=== PATIENT | female | born 1940 | race Caucasian/White ===

== ENCOUNTER → 2017-10-06 | Outpatient (CLI) | payer MEDICARE ==
[2017-10-06 08:55] LABS: ADD MAN DIFF? NO
[2017-10-06 09:02] LABS: BASO % 1 % (0-3); EOS % 5 % (0-3); HEMATOCRIT 40.8 % (36.0-47.0); HEMOGLOBIN 13.7 g/dL (12.0-15.5); LYMPH # 0.7 x10^3/uL (1.0-4.8); LYMPH % 17 % (24-48); MEAN CORPUSCULAR HEMOGLOBIN 30 pg (25-35); MEAN CORPUSCULAR HGB CONC 34 g/dL (31-37); MEAN CORPUSCULAR VOLUME 89 fL (79-100); MONO % 9 % (0-9); NEUT % 69 % (31-73); PLATELET COUNT 194 x10^3/uL (140-400); RED BLOOD COUNT 4.57 x10^6/uL (3.50-5.40); RED CELL DISTRIBUTION WIDTH 13.5 % (11.5-14.5); WHITE BLOOD COUNT 4.4 x10^3/uL (4.0-11.0)
[2017-10-06 09:15] LABS: ALBUMIN 4.1 g/dL (3.4-5.0); ALBUMIN/GLOBULIN RATIO 1.2 (1.0-1.7); ALK PHOS 65 U/L (46-116); ALT (SGPT) 19 U/L (14-59); ANION GAP 9 (6-14); AST (SGOT) 14 U/L (15-37); BLOOD UREA NITROGEN 19 mg/dL (7-20); BUN/CREATININE RATIO 24 (6-20); CALCIUM 8.6 mg/dL (8.5-10.1); CARBON DIOXIDE 30 mmol/L (21-32); CHLORIDE 104 mmol/L (98-107); CHOLESTEROL 168 mg/dL (0-200); CHOLESTEROL/HDL RATIO 2.4; CREATININE 0.8 mg/dL (0.6-1.0); GFR 69.7; GLUCOSE 114 mg/dL (70-99); HDLC 69 mg/dL (40-60); NON-HDL CHOLESTEROL 99 mg/dL (0-129); POTASSIUM 4.3 mmol/L (3.5-5.1); SODIUM 143 mmol/L (136-145); TOTAL BILIRUBIN 0.5 mg/dL (0.2-1.0); TOTAL PROTEIN 7.5 g/dL (6.4-8.2); TRIGLYCERIDES 88 mg/dL (0-150)
[2017-10-06 10:26] LABS: BILIRUBIN,URINE NEGATIVE (NEG); GLUCOSE,URINE NEGATIVE (NEG); NITRITE,URINE NEGATIVE (NEG); PROTEIN,URINE NEGATIVE (NEG-TRACE); UROBILINOGEN,URINE 0.2 mg/dL (0.2 mg/dL)
[2017-10-06 10:50] LABS: BACTERIA,URINE 0 /HPF (0-FEW); SQUAMOUS EPITHELIAL CELL,UR MOD /LPF
== END | disposition home or self-care (01) ==
LOC: LAB 08:18
DX: I10 Essential (primary) hypertension (principal); E78.5 Hyperlipidemia, unspecified; D64.9 Anemia, unspecified; R30.0 Dysuria
CPT/HCPCS: 36415; 80053; 80061; 81001; 84443; 85025; 87086

== ENCOUNTER 2017-12-28 17:29 | Emergency (ER) | payer MEDICARE ==
[2017-12-28] MEDS: HYDROcodone/APAP 7.5/325MG 1 TAB TABLET PO (18:42)
== END 2017-12-28 19:10 | disposition home or self-care (01) ==
LOC: ER 17:29
DX: S42.212A Unspecified displaced fracture of surgical neck of left humerus, initial encounter for closed fracture (principal); I10 Essential (primary) hypertension; E78.00 Pure hypercholesterolemia, unspecified; Z90.49 Acquired absence of other specified parts of digestive tract; Z90.710 Acquired absence of both cervix and uterus; Z93.3 Colostomy status; W01.0XXA Fall on same level from slipping, tripping and stumbling without subsequent striking against object, initial encounter; Y93.89 Activity, other specified; Y92.89 Other specified places as the place of occurrence of the external cause; Y99.8 Other external cause status
CPT/HCPCS: 73030; 99284

== ENCOUNTER → 2018-01-11 | Outpatient (CLI) | payer MEDICARE ==
[2018-01-11 08:38] LABS: ADD MAN DIFF? NO
[2018-01-11 08:53] LABS: BASO % 1 % (0-3); EOS # 0.1 x10^3/uL (0.0-0.7); EOS % 1 % (0-3); HEMATOCRIT 39.2 % (36.0-47.0); LYMPH # 1.1 x10^3/uL (1.0-4.8); LYMPH % 14 % (24-48); MEAN CORPUSCULAR HEMOGLOBIN 30 pg (25-35); MEAN CORPUSCULAR HGB CONC 33 g/dL (31-37); MEAN CORPUSCULAR VOLUME 91 fL (79-100); MONO # 0.4 x10^3/uL (0.0-1.1); MONO % 6 % (0-9); NEUT # 6.2 x10^3uL (1.8-7.7); NEUT % 79 % (31-73); PLATELET COUNT 365 x10^3/uL (140-400); RED BLOOD COUNT 4.32 x10^6/uL (3.50-5.40); RED CELL DISTRIBUTION WIDTH 14.4 % (11.5-14.5); WHITE BLOOD COUNT 7.9 x10^3/uL (4.0-11.0)
[2018-01-11 09:27] LABS: ALK PHOS 85 U/L (46-116); ALT (SGPT) 17 U/L (14-59); ANION GAP 9 (6-14); AST (SGOT) 11 U/L (15-37); BLOOD UREA NITROGEN 25 mg/dL (7-20); BUN/CREATININE RATIO 18 (6-20); CALCIUM 9.6 mg/dL (8.5-10.1); CARBON DIOXIDE 30 mmol/L (21-32); CHLORIDE 102 mmol/L (98-107); CHOLESTEROL 146 mg/dL (0-200); CREATININE 1.4 mg/dL (0.6-1.0); GFR 36.6; GLUCOSE 150 mg/dL (70-99); HDLC 60 mg/dL (40-60); LDLC 65 mg/dL (0-100); NON-HDL CHOLESTEROL 86 mg/dL (0-129); POTASSIUM 4.4 mmol/L (3.5-5.1); SODIUM 141 mmol/L (136-145); TOTAL BILIRUBIN 0.6 mg/dL (0.2-1.0); TOTAL PROTEIN 7.9 g/dL (6.4-8.2); TRIGLYCERIDES 103 mg/dL (0-150); VLDLC 21 mg/dL (0-40)
[2018-01-11 09:28] LABS: CHOLESTEROL/HDL RATIO 2.4
[2018-01-11 09:37] LABS: THYROID STIM HORMONE (TSH) 1.631 uIU/mL (0.358-3.74)
[2018-01-12 04:17] LABS: HEMOGLOBIN A1C 5.5 % (4.8-5.6)
== END | disposition home or self-care (01) ==
LOC: LAB 08:18
DX: I10 Essential (primary) hypertension (principal); E78.5 Hyperlipidemia, unspecified; M19.90 Unspecified osteoarthritis, unspecified site; D64.9 Anemia, unspecified; R73.09 Other abnormal glucose
CPT/HCPCS: 36415; 80053; 80061; 83036; 84443; 85025

== ENCOUNTER → 2018-08-06 | Outpatient (CLI) | payer MEDICARE ==
[2017-12-28 18:57] VITALS: BP 203/86
[~2018-08-06] MED LIST: HYDR-2869 PO; HYDR-971 PO; LISI-334 PO; LOVA20TA2 PO
[2018-08-06 08:42] LABS: BILIRUBIN,URINE SMALL (NEG); CLARITY,URINE CLEAR; COLOR,URINE YELLOW; NITRITE,URINE NEGATIVE (NEG); PROTEIN,URINE NEGATIVE (NEG-TRACE)
[2018-08-06 08:49] LABS: ALBUMIN 3.7 g/dL (3.4-5.0); ALBUMIN/GLOBULIN RATIO 1.1 (1.0-1.7); GFR 53.8; POTASSIUM 3.8 mmol/L (3.5-5.1); TOTAL BILIRUBIN 0.5 mg/dL (0.2-1.0)
[2018-08-06 08:51] LABS: CHOLESTEROL/HDL RATIO 2.3
[2018-08-06 09:01] LABS: SQUAMOUS EPITHELIAL CELL,UR FEW /LPF
[2018-08-06 09:02] LABS: BACTERIA,URINE 0 /HPF (0-FEW); HYALINE CASTS, URINE OCCASIONAL /HPF; RBC,URINE 0 /HPF (0-2)
[2018-08-06 10:27] LABS: BASO % 1 % (0-3); EOS # 0.2 x10^3/uL (0.0-0.7); EOS % 5 % (0-3); HEMATOCRIT 35.8 % (36.0-47.0); HEMOGLOBIN 12.4 g/dL (12.0-15.5); LYMPH # 0.9 x10^3/uL (1.0-4.8); LYMPH % 19 % (24-48); MEAN CORPUSCULAR HEMOGLOBIN 31 pg (25-35); MEAN CORPUSCULAR HGB CONC 35 g/dL (31-37); MEAN CORPUSCULAR VOLUME 89 fL (79-100); MONO # 0.4 x10^3/uL (0.0-1.1); MONO % 9 % (0-9); NEUT # 3.1 x10^3uL (1.8-7.7); NEUT % 67 % (31-73); PLATELET COUNT 223 x10^3/uL (140-400); RED BLOOD COUNT 4.02 x10^6/uL (3.50-5.40); RED CELL DISTRIBUTION WIDTH 13.4 % (11.5-14.5); WHITE BLOOD COUNT 4.7 x10^3/uL (4.0-11.0)
== END | disposition home or self-care (01) ==
LOC: LAB 07:45
PROVIDERS: ATTEND Family Medicine
DX: I10 Essential (primary) hypertension (principal); E78.5 Hyperlipidemia, unspecified; M19.90 Unspecified osteoarthritis, unspecified site; R30.0 Dysuria
CPT/HCPCS: 36415; 80053; 80061; 81001; 84443; 85025; 87086

== ENCOUNTER 2018-08-25 14:21 | Emergency (ER) | payer MEDICARE ==
[~2018-08-25] VITALS: Ht 162.6 cm; Wt 52.6 kg
[~2018-08-25 14:21] MED LIST changes: +HYDR-3164 PO; -HYDR-971 PO
[2018-08-25 14:41] LABS: BASO % 1 % (0-3); EOS % 1 % (0-3); HEMATOCRIT 36.7 % (36.0-47.0); HEMOGLOBIN 12.6 g/dL (12.0-15.5); LYMPH # 0.6 x10^3/uL (1.0-4.8); LYMPH % 12 % (24-48); MEAN CORPUSCULAR HEMOGLOBIN 31 pg (25-35); MEAN CORPUSCULAR HGB CONC 34 g/dL (31-37); MEAN CORPUSCULAR VOLUME 89 fL (79-100); MONO # 0.2 x10^3/uL (0.0-1.1); MONO % 4 % (0-9); NEUT % 83 % (31-73); PLATELET COUNT 169 x10^3/uL (140-400); RED BLOOD COUNT 4.13 x10^6/uL (3.50-5.40); WHITE BLOOD COUNT 4.9 x10^3/uL (4.0-11.0)
[2018-08-25] MEDS ORDERED: ONDANSETRON ODT 4 MG TAB.RAPDIS. PO ONE (14:45)
[2018-08-25 14:52] VITALS: BP 175/72
[2018-08-25 14:55] LABS: CALCIUM 9.3 mg/dL (8.5-10.1); CREATININE 0.9 mg/dL (0.6-1.0); GFR 60.7
--- NOTE | 2018-08-25 15:00 | RAD ---
Single view chest dated 08/25/2018. No comparison available. CLINICAL INDICATION: Cough nausea vomiting since this morning. FINDINGS: Single upright portable exam performed. Heart and mediastinal contours are within normal limits. There is mild tortuosity of the thoracic aorta. Lungs are clear without focal consolidation. Vascular interstitium within normal limits. No pleural effusion or pneumothorax. IMPRESSION: No acute radiographic abnormality. Electronically signed by: Darwin Rios MD (08/25/2018 2:57 PM) [facility] [place]
[2018-08-25 15:01] LABS: ALBUMIN 3.5 g/dL (3.4-5.0); ALBUMIN/GLOBULIN RATIO 1.1 (1.0-1.7); TOTAL BILIRUBIN 0.5 mg/dL (0.2-1.0); TOTAL PROTEIN 6.6 g/dL (6.4-8.2)
--- NOTE | 2018-08-25 15:13 | PHYS DOC ---
Past Medical History Past Medical History: Cancer, High Cholesterol, Hypertension, Other Additional Past Medical Histor: COLON CA Past Surgical History: Appendectomy, Colectomy, Hysterectomy, Other Additional Past Surgical Histo: COLOSTOMY AND TAKEDOWN Alcohol Use: None Drug Use: None Adult General Chief Complaint Chief Complaint: NAUSEA/VOMITING/DIARRHA HPI HPI Patient is a 78 year old female with history of hypertension, dyslipidemia and vertigo who presents with intermittent dizziness since waking this morning. Patient reports feeling dizzy and lightheaded. She also reports feeling nauseated with white phlegm production. Symptoms are worse with walking and standing and are relieved with rest. Patient denies headache, tinnitus, hearing loss, neck pain. No chest pain palpitations, shortness of breath, or focal extremity weakness or loss of sensation. No other acute symptoms or complaints. Reports intermittent sharp left-sided abdominal pain 2 months. No bloody stools dark tarry stools. No other acute symptoms or complaints [] Review of Systems Review of Systems Review symptoms as per history of present illness. All other review symptoms are negative. All other systems were reviewed and found to be within normal limits, except as documented in this note. Current Medications Current Medications Current Medications Medications (Trade) Dose Ordered Sig/Ajvi Start Time Stop Time Status Last Admin Dose Admin Meclizine HCl (Antivert) 25 mg 1X ONCE 08/25/18 15:15 08/25/18 15:16 DC 08/25/18 15:21 25 MG Ondansetron HCl (Zofran Odt) 4 mg 1X ONCE 08/25/18 14:45 08/25/18 14:46 DC 08/25/18 15:09 4 MG Allergies Allergies Allergies Coded Allergies Type Severity Reaction Last Updated Verified No Known Drug Allergies 09/11/13 No Physical Exam Physical Exam Constitutional: Well developed, well nourished, no acute distress, non-toxic appearance. [] HENT: Normocephalic, atraumatic, bilateral external ears normal, oropharynx moist, nose normal. [] Eyes: PERRLA, EOMI, conjunctiva normal, horizontal nystagmus on exam. [] Neck: Normal range of motion, no tenderness. [] Cardiovascular:Heart rate regular rhythm, no murmur [] Lungs & Thorax: Bilateral breath sounds clear to auscultation. [] Abdomen: Bowel sounds normal, soft, no tenderness. [] Skin: Warm, dry, no erythema. [] Back: No tenderness. [] Extremities: No tenderness, no edema. [] Neurologic: Alert and oriented X 3, cranial nerves II through XII, normal motor function, normal sensory function, no focal deficits noted. [] Psychologic: Affect normal, judgement normal, mood normal. [] Current Patient Data Vital Signs Vital Signs Date Time Temp Pulse Resp B/P (MAP) Pulse Ox O2 Delivery O2 Flow Rate FiO2 08/25/18 14:52 74 20 175/72 (106) 99 Room Air 08/25/18 14:21 97.7 97.7 Lab Values Laboratory Tests Test 08/25/18 14:34 White Blood Count 4.9 x10^3/uL (4.0-11.0) Red Blood Count 4.13 x10^6/uL (3.50-5.40) Hemoglobin 12.6 g/dL (12.0-15.5) Hematocrit 36.7 % (36.0-47.0) Mean Corpuscular Volume 89 fL (79-100) Mean Corpuscular Hemoglobin 31 pg (25-35) Mean Corpuscular Hemoglobin Concent 34 g/dL (31-37) Red Cell Distribution Width 13.0 % (11.5-14.5) Platelet Count 169 x10^3/uL (140-400) Neutrophils (%) (Auto) 83 % (31-73) H Lymphocytes (%) (Auto) 12 % (24-48) L Monocytes (%) (Auto) 4 % (0-9) Eosinophils (%) (Auto) 1 % (0-3) Basophils (%) (Auto) 1 % (0-3) Neutrophils # (Auto) 4.0 x10^3uL (1.8-7.7) Lymphocytes # (Auto) 0.6 x10^3/uL (1.0-4.8) L Monocytes # (Auto) 0.2 x10^3/uL (0.0-1.1) Eosinophils # (Auto) 0.0 x10^3/uL (0.0-0.7) Basophils # (Auto) 0.0 x10^3/uL (0.0-0.2) Sodium Level 143 mmol/L (136-145) Potassium Level 4.0 mmol/L (3.5-5.1) Chloride Level 106 mmol/L (98-107) Carbon Dioxide Level 29 mmol/L (21-32) Anion Gap 8 (6-14) Blood Urea Nitrogen 16 mg/dL (7-20) Creatinine 0.9 mg/dL (0.6-1.0) Estimated GFR (Cockcroft-Gault) 60.7 BUN/Creatinine Ratio 18 (6-20) Glucose Level 163 mg/dL (70-99) H Calcium Level 9.3 mg/dL (8.5-10.1) Total Bilirubin 0.5 mg/dL (0.2-1.0) Aspartate Amino Transferase (AST) 11 U/L (15-37) L Alanine Aminotransferase (ALT) 13 U/L (14-59) L Alkaline Phosphatase 60 U/L (46-116) Troponin I Quantitative < 0.017 ng/mL (0.000-0.055) Total Protein 6.6 g/dL (6.4-8.2) Albumin 3.5 g/dL (3.4-5.0) Albumin/Globulin Ratio 1.1 (1.0-1.7) Laboratory Tests 08/25/18 14:34 Laboratory Tests 08/25/18 14:34 EKG EKG [EKG: Sinus arrhythmia, rate 79, no acute ST-T wave changes, QTC 425.] Radiology/Procedures Radiology/Procedures Chest x-ray: No acute cardiopulmonary disease per radiology report.[] Course & Med Decision Making Course & Med Decision Making Pertinent Labs and Imaging studies reviewed. (See chart for details) [Intermittent positional dizziness with nausea with history of vertigo. No focal deficits on exam. CT head is nonacute.. Meclizine and Zofran given. Symptoms improved and patient walks with steady gait.. Patient requests discharged home. PCP follow-up recommended. Return precautions reviewed.] Dragon Disclaimer Dragon Disclaimer This electronic medical record was generated, in whole or in part, using a voice recognition dictation system. Departure Departure Impression: Primary Impression: Dizziness Additional Impression: Nausea Disposition: 01 HOME, SELF-CARE Condition: GOOD Referrals: LUI CERON (PCP) Patient Instructions: Dizziness, Mrxi-dq-Sogu, Nausea, Adult, Czhe-bt-[id number] Additional Instructions: You were evaluated in the emergency department for dizziness and nausea. CT lab and EKG were performed. The exact cause of your symptoms has not been determined. Please continue meclizine at home and take nausea medication as directed. Follow-up with your PCP in 1-2 days for reevaluation. If you develop new or worsening symptoms, please return to the ED for further evaluation Scripts Ondansetron Hcl (ZOFRAN) 4 Mg Tablet 1 TAB PO Q6HRS, #10 TAB 0 Refills Prov: CHARO EDWARDS DO 08/25/18 Problem Qualifiers CHARO EDWARDS DO Aug 25, 2018 15:13
[2018-08-25] MEDS ORDERED: MECLIZINE HCL 12.5 MG TABLET. PO ONE (15:15)
--- NOTE | 2018-08-25 15:50 | RAD ---
CT HEAD WO CONTRAST dated 08/25/2018 3:27 PM Indication:. Dizzinessdizziness, vertigo, prior sent. Comparison: 06/04/2005 Technique: Contiguous axial imaging the head was performed from skull base to vertex. One or more of the following individualized dose reduction techniques were utilized for this examination: 1. Automated exposure control 2. Adjustment of the mA and/or kV according to patient size 3. Use of iterative reconstruction technique Findings: Ventricles and sulci are mildly prominent for age. No midline shift or mass effect. Brain parenchyma is of normal attenuation. No hemorrhage or extra axial collection. Posterior fossa and brainstem unremarkable. Visualized paranasal sinuses and mastoid air cells are clear. No apparent calvarial abnormality. IMPRESSION: 1. No evidence of acute intracranial hemorrhage or mass. 2. Mild atrophy for age. Electronically signed by: Darwin Rios MD (08/25/2018 3:46 PM) [facility] [place]
[2018-08-25] MEDS ORDERED: ONDA4TAB7 PO (16:56)
--- NOTE | 2018-08-26 07:36 | EKG ---
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
== END 2018-08-25 17:03 | disposition home or self-care (01) ==
LOC: ER 14:21
DX: R42 Dizziness and giddiness (principal); R11.2 Nausea with vomiting, unspecified; R10.9 Unspecified abdominal pain; I10 Essential (primary) hypertension; E78.00 Pure hypercholesterolemia, unspecified; Z90.89 Acquired absence of other organs; Z90.710 Acquired absence of both cervix and uterus; Z90.49 Acquired absence of other specified parts of digestive tract; Z93.3 Colostomy status; Z85.038 Personal history of other malignant neoplasm of large intestine
CPT/HCPCS: 36415; 70450; 71045; 80053; 84484; 85025; 93005; 99285; J8597; Q0162

== ENCOUNTER → 2019-01-08 | Outpatient (CLI) | payer MEDICARE ==
[~2019-01-08] MED LIST changes: +ONDA4TAB7 PO
[2019-01-08 09:03] LABS: ALBUMIN 3.8 g/dL (3.4-5.0); ALBUMIN/GLOBULIN RATIO 1.4 (1.0-1.7); CHOLESTEROL/HDL RATIO 2.3; GFR 53.8; POTASSIUM 5.1 mmol/L (3.5-5.1); TOTAL BILIRUBIN 0.5 mg/dL (0.2-1.0); TOTAL PROTEIN 6.6 g/dL (6.4-8.2)
[2019-01-08 09:06] LABS: BASO % 1 % (0-3); EOS # 0.3 x10^3/uL (0.0-0.7); EOS % 7 % (0-3); HEMATOCRIT 36.6 % (36.0-47.0); HEMOGLOBIN 12.3 g/dL (12.0-15.5); LYMPH # 0.9 x10^3/uL (1.0-4.8); LYMPH % 23 % (24-48); MEAN CORPUSCULAR HEMOGLOBIN 30 pg (25-35); MEAN CORPUSCULAR HGB CONC 34 g/dL (31-37); MEAN CORPUSCULAR VOLUME 90 fL (79-100); MONO # 0.3 x10^3/uL (0.0-1.1); MONO % 8 % (0-9); NEUT # 2.4 x10^3uL (1.8-7.7); NEUT % 62 % (31-73); PLATELET COUNT 188 x10^3/uL (140-400); RED BLOOD COUNT 4.05 x10^6/uL (3.50-5.40); WHITE BLOOD COUNT 3.9 x10^3/uL (4.0-11.0)
== END | disposition home or self-care (01) ==
LOC: LAB 08:21
PROVIDERS: ATTEND Family Medicine
DX: I10 Essential (primary) hypertension (principal); E53.8 Deficiency of other specified B group vitamins; E78.5 Hyperlipidemia, unspecified; E66.9 Obesity, unspecified; L40.9 Psoriasis, unspecified
CPT/HCPCS: 36415; 80053; 80061; 82607; 84443; 85025

== ENCOUNTER → 2019-01-10 | Day surgery (SDC) | payer MEDICARE ==
[~2019-01-10] MED LIST changes: +HYDROmorphone 2 MG/ML VIAL IV PRN; +IV RINGERS,LACTATED 1000ML 1,000 ML IV SCH; +LIDOCAINE 1% PF 2 ML VIAL. ONE; +MORPHINE SULFATE 2 MG/ML VIAL. IV PRN; +ONDANSETRON PF 4 MG/2 ML VIAL. IV PRN; +PROCHLORPERAZINE 10 MG/2 ML VIAL. IV PRN; +PROPOFOL 40 ML IV ONE; +fentaNYL PF VIAL 100 MCG/2 ML VIAL IV PRN
[2019-01-10 13:31] VITALS: BP 188/78
--- NOTE | 2019-01-14 13:30 | PATHOLOGY ---
[facility] Accession Number: [id number] . 01 Material submitted: . SIGMOID POLYP . 01 Clinical history: . History duodenal polyp, abdominal pain, CRCS . 02 Diagnosis: Colon biopsy, sigmoid polyp: - Tubular adenoma. LBQ/01/11/2019 . 02 Comment: There is no high grade dysplasia or evidence of malignancy. (JPM/db; 01/11/2019) . 02 Electronically signed: . Bryant Monterroso MD, Pathologist NPI- [id number] . 01 Gross description: . The specimen is received in formalin, labeled "Bresette, Anushka, sigmoid polyp", is a crenshaw rubbery, sessile polyp measuring 0.4 x 0.2 cm, inked black, bisected and entirely submitted in A1. ([facility]; 01/10/2019) SHS/SHS . 02 Pathologist provided ICD-10: D12.5 . 02 CPT . 497578 Specimen Comment: A courtesy copy of this report has been sent to Specimen Comment: [phone]. Specimen Comment: Report sent to DR CERON Specimen Comment: A duplicate report has been generated due to demographic updates. Performed at: 01 [facility] [address], [place] [id number] MD Isidro Flores MD Phone: [phone] Performed at: 02 [facility] [place] [address] [place], [place] [id number] MD Bryant Monterroso MD Phone: [phone]
== END | disposition home or self-care (01) ==
LOC: SURG 10:34
PROVIDERS: ATTEND Internal Medicine Gastroenterology
DX: D12.5 Benign neoplasm of sigmoid colon (principal); K64.0 First degree hemorrhoids; K29.50 Unspecified chronic gastritis without bleeding; Z86.010 Personal history of colon polyps; Z85.038 Personal history of other malignant neoplasm of large intestine; Z82.49 Family history of ischemic heart disease and other diseases of the circulatory system; Z79.899 Other long term (current) drug therapy; Z90.49 Acquired absence of other specified parts of digestive tract; Z90.710 Acquired absence of both cervix and uterus; Z98.890 Other specified postprocedural states
CPT/HCPCS: 43235; 45385; 88305; J2704; 45380

== ENCOUNTER → 2019-04-17 | Outpatient (CLI) | payer MEDICARE ==
[2019-01-10 13:31] VITALS: BP 188/78
[~2019-04-17] MED LIST changes: +CONTRAST GIVEN. MC PRN; -HYDROmorphone 2 MG/ML VIAL IV PRN; +IOHEXOL 350 MG/ML 100 ML VIAL. IV ONE; -IV RINGERS,LACTATED 1000ML 1,000 ML IV SCH; -LIDOCAINE 1% PF 2 ML VIAL. ONE; -MORPHINE SULFATE 2 MG/ML VIAL. IV PRN; -ONDANSETRON PF 4 MG/2 ML VIAL. IV PRN; -PROCHLORPERAZINE 10 MG/2 ML VIAL. IV PRN; -PROPOFOL 40 ML IV ONE; -fentaNYL PF VIAL 100 MCG/2 ML VIAL IV PRN
[2019-04-17 09:17] LABS: CREATININE 0.9 mg/dL (0.6-1.0); GFR 60.7
--- NOTE | 2019-04-17 12:47 | RAD ---
Examination: CT ANGIOGRAPHY ABDOMEN History: Abdominal pain with eating Comparison/Correlation: 03/20/2016 CT abdomen and pelvis with contrast Findings: Axial images of the abdomen were obtained following IV contrast according to arteriography protocol. Sagittal and coronal reformatted images were provided. MIP images provided. 3-D volume rendered images provided. Visualized lung bases are clear. Spleen is unremarkable. Cholelithiasis is present. No findings of biliary dilatation or cholecystitis. Spleen, pancreas, and adrenal glands are normal. Kidneys are unremarkable. Scattered calcific involvement of the abdominal aorta is noted. Minimal calcific involvement of the origin of the celiac artery noted. Calcific involvement about the origin of the superior mesenteric artery is notable. No significant stenosis. The inferior mesenteric artery is diminutive but does not appear to have a significant stenosis at the origin and it opacifies well with contrast. No abdominal aortic aneurysm. Main renal arteries are patent with no significant stenosis. There are no enlarged abdominal lymph nodes. Moderate quantity of stool in colon noted. Facet joint degenerative changes of the low lumbar spine are present. Multilevel significant disc space narrowing of the lumbar spine noted. Impression: No significant stenosis of the celiac, superior mesenteric, or inferior mesenteric arteries. No findings to suggest bowel ischemia. Cholelithiasis. Electronically signed by: Swapnil Sanderson MD (04/17/2019 12:44 PM) [facility]
== END | disposition home or self-care (01) ==
LOC: CT 08:39
PROVIDERS: ATTEND Internal Medicine Gastroenterology
DX: K80.20 Calculus of gallbladder without cholecystitis without obstruction (principal); M48.061 Spinal stenosis, lumbar region without neurogenic claudication; M47.816 Spondylosis without myelopathy or radiculopathy, lumbar region; R59.0 Localized enlarged lymph nodes; I10 Essential (primary) hypertension; Z90.49 Acquired absence of other specified parts of digestive tract
CPT/HCPCS: 36415; 74175; 82565; 84520; Q9967

== ENCOUNTER → 2019-05-08 | Outpatient (CLI) | payer MEDICARE ==
[2019-01-10 13:31] VITALS: BP 188/78
[~2019-05-08] MED LIST changes: -CONTRAST GIVEN. MC PRN; -IOHEXOL 350 MG/ML 100 ML VIAL. IV ONE; +MECL25TA3 PO
[2019-05-08 16:29] LABS: BASO % 1 % (0-3); EOS # 0.2 x10^3/uL (0.0-0.7); EOS % 4 % (0-3); HEMATOCRIT 35.6 % (36.0-47.0); LYMPH # 1.1 x10^3/uL (1.0-4.8); LYMPH % 26 % (24-48); MEAN CORPUSCULAR HEMOGLOBIN 30 pg (25-35); MEAN CORPUSCULAR HGB CONC 34 g/dL (31-37); MEAN CORPUSCULAR VOLUME 89 fL (79-100); MONO # 0.4 x10^3/uL (0.0-1.1); MONO % 8 % (0-9); NEUT # 2.8 x10^3/uL (1.8-7.7); NEUT % 62 % (31-73); PLATELET COUNT 198 x10^3/uL (140-400); RED CELL DISTRIBUTION WIDTH 13.7 % (11.5-14.5); WHITE BLOOD COUNT 4.4 x10^3/uL (4.0-11.0)
[2019-05-08 16:52] LABS: CALCIUM 9.3 mg/dL (8.5-10.1); CREATININE 0.9 mg/dL (0.6-1.0); GFR 60.7; POTASSIUM 3.9 mmol/L (3.5-5.1); TOTAL BILIRUBIN 0.3 mg/dL (0.2-1.0)
== END | disposition home or self-care (01) ==
LOC: SURGPAT 12:11
PROVIDERS: ATTEND Neurological Surgery
DX: Z01.818 Encounter for other preprocedural examination (principal); K80.20 Calculus of gallbladder without cholecystitis without obstruction
CPT/HCPCS: 36415; 80048; 82040; 82247; 85025

== ENCOUNTER → 2019-05-15 | Day surgery (SDC) | payer MEDICARE ==
[~2019-05-15] VITALS: Ht 165.1 cm; Wt 74.0 kg
[~2019-05-15] MED LIST changes: +BUPIVACAINE-EPI 0.25%-1:200000 MPF 30 ML VIAL. ONE; +DEXAMETHASONE SOD PHOS 4 MG/ML VIAL ONE; +GLUCAGON,HUMAN RECOMBINANT 1 MG/ML VIAL. ONE; +GLYCOPYRROLATE 1 MG/5 ML VIAL. ONE; +HYDROcodone/APAP 5/325MG 1 TAB TABLET ONE; +HYDROcodone/APAP 5/325MG 1 TAB TABLET PO ONE; +HYDROmorphone 2 MG/ML VIAL IV PRN; +IOHEXOL 300 MG/ML 50 ML VIAL. ONE; +IV RINGERS,LACTATED 1000ML 1,000 ML IV SCH; +LIDOCAINE 1% PF 2 ML VIAL. ID PRN; +LIDOCAINE 2% PF 5 ML VIAL. ONE; +MORPHINE SULFATE 2 MG/ML VIAL. IV PRN; +NEOSTIGMINE METHYLSULFATE 5 MG/5 ML SYRINGE. ONE; +ONDANSETRON PF 4 MG/2 ML VIAL. IV PRN; +ONDANSETRON PF 4 MG/2 ML VIAL. ONE; +PROCHLORPERAZINE 10 MG/2 ML VIAL. IV PRN; +PROCHLORPERAZINE 10 MG/2 ML VIAL. ONE; +PROPOFOL 20 ML IV ONE; +SURGICEL HEMOSTAT 4X8 EACH. ONE; +fentaNYL PF VIAL 100 MCG/2 ML VIAL IV PRN; +fentaNYL PF VIAL 100 MCG/2 ML VIAL ONE
--- NOTE | 2019-05-15 10:47 | RAD ---
EXAM: Intraoperative cholangiogram. HISTORY: Cholecystectomy. COMPARISON: None. FINDINGS: 3 fluoroscopic images were obtained during an intraoperative cholangiogram. The total fluoroscopy time is 0.15 minutes. The images demonstrate contrast opacification of the biliary tree and proximal duodenum. There is no convincing filling defect to suggest a retained stone. There is an incidental nasogastric tube within the proximal stomach. IMPRESSION: Intraoperative cholangiogram, without convincing evidence of a retained stone. Electronically signed by: Wen Salazar MD (05/15/2019 10:45 AM) [facility]
--- NOTE | 2019-05-15 11:10 | PDOC ---
BRIEF OPERATIVE NOTE Date: May 15, 2019 Pre-Op Diagnosis symptomatic cholelithiasis Post-Op Diagnosis same Procedure Performed l/s cholecystectomy with cholangiograms Surgeon Marek Supervisor Fitting Amy JACOBSONA Anesthesia Type: General Blood Loss 10cc IV Fluid 650cc Specimens Obtained GB Findings supple GB, normal grams Complications none Operative Note Wk # [id number] BHARTI PRATER MD May 15, 2019 11:10
[2019-05-15] MEDS: fentaNYL PF VIAL 100 MCG/2 ML VIAL IV PRN ×2 (11:28→12:35)
[2019-05-15 13:22] VITALS: BP 199/79
--- NOTE | 2019-05-15 15:29 | DISCH ---
DISCHARGE INSTRUCTIONS Condition on Discharge Condition on Discharge: Stable Activity After Discharge Activity Instructions for Disc: Activity as tolerated, Avoid exertion Exercise Instruction after Dis: Progress as tolerated Driving Instructions after Dis: Do not drive (3-4 days) Diet after Discharge Diet after Discharge: Regular Diet Texture: Regular Liquid Texture: Thin Liquid Swallowing Supervision: None needed Wound Incision Care Wound/Incision Care: Ice to area for comfort Other wound/incision instructi: february shower Monday Checks after Discharge Checks after discharge: Check blood press - daily Follow-Up Follow up with: Marek next week Treatment/Equipment after DC Adaptive Equipment Issued: None BHARTI PRATER MD May 15, 2019 15:29
--- NOTE | 2019-05-15 15:41 | OP ---
DATE OF SURGERY: 05/15/2019 PREOPERATIVE DIAGNOSIS: Symptomatic cholelithiasis. POSTOPERATIVE DIAGNOSIS: Symptomatic cholelithiasis. PROCEDURE: Laparoscopic cholecystectomy with cholangiogram. SURGEON: Bharti Prater MD SUMMER CAMP COUNSELOR: BRENDON Maddox ANESTHESIA: General endotracheal. ESTIMATED BLOOD LOSS: 10. INTRAVENOUS FLUIDS: 650. OPERATIVE FINDINGS: The liver was smooth and sharp. The gallbladder was supple. Cholangiograms were normal. Visual inspection of the remainder of the abdomen failed to reveal obvious abnormalities. OPERATIVE REPORT: The patient was brought to the operating suite, given a general endotracheal anesthetic, and the abdomen prepped and draped in usual sterile fashion. Marcaine 0.25% was infiltrated to the right of the umbilicus. Incision made and a 5-mm Visiport used to safely gain access into the abdominal cavity taking care to avoid injury to the abdominal contents. Pneumoperitoneum was established, camera inserted, and inspection carried out with results as noted above. With the table in reverse Trendelenburg rolled to the left, the epigastric and midclavicular ports were placed under direct vision. The lateral port location was used for an "alligator" grasper and the gallbladder was retracted superolaterally. Cystic duct and cystic artery identified. The duct was clipped on the gallbladder side. Cholangiograms were made. These were normal. In light of this, the catheter was removed. The cystic duct was clipped x 3 and divided taking care to avoid injury or compromise of the common duct. An anterior and posterior branch of the cystic artery was controlled with 3 clips. Gallbladder was freed from the bed with cautery dissection and placed in an EndoCatch bag. Good hemostasis was present in the fossa and no evidence of bile leak was seen. Table returned to level. Gallbladder delivered through the epigastric incision. Epigastric incision closed with interrupted 0 Vicryl suture. Intraabdominal pressure decreased to 6 cm of water. No bleeding from the epigastric closure or the midclavicular port site after its removal or from the lateral side of the alligator grasper. Abdomen decompressed. Cam removed. No bleeding seen. Skin incisions closed with subcuticular 4-0 Monocryl. Steri-Strips and sterile dressings applied. The patient was awakened from her anesthetic and taken to the recovery room in satisfactory condition. BHARTI PRATER MD DR: Joi JOB#: [id number] / [id number]
--- NOTE | 2019-05-16 18:06 | PATHOLOGY ---
[facility] Accession Number: [id number] . 01 Material submitted: . gallbladder - GALLBLADDER AND CONTENTS . 01 Clinical history: . Cholelithiasis . 02 Diagnosis: Gallbladder, cholecystectomy: - Cholelithiasis. - Cholesterolosis. - Chronic cholecystitis. LBQ/05/16/2019 . 02 Comment: There is no evidence of malignancy. (JPM/db; 05/16/2019) . 02 Electronically signed: . Bryant Monterroso MD, Pathologist NPI- [id number] . 01 Gross description: . The specimen is received in formalin, labeled "Bresette, Anushka, gallbladder and contents", is an intact gallbladder measuring 7.7 cm in length and 2.4 cm in maximum diameter with a wrinkled crenshaw-purple serosa. The cystic duct is dilated. The gallbladder lumen contains yellow-brown bile and four irregular black calculi measuring 1.2 x 1.0 x 0.7 cm in aggregate. The mucosa is crenshaw-brown with possible cholesterolosis. The wall is 0.1 cm in average thickness. Representatively submitted in A1. ([facility]; 05/15/2019) SHS/SHS . 02 Pathologist provided ICD-10: K80.10, K82.4 . 02 CPT . 267593 Specimen Comment: A courtesy copy of this report has been sent to Specimen Comment: [phone], . Specimen Comment: Report sent to / DR CERON Performed at: 01 [facility] [address], [place], [place] [id number] MD Isidro Flores MD Phone: [phone] Performed at: 02 [facility] [address] [place], [place] [id number] MD Bryant Monterroso MD Phone: [phone]
== END | disposition home or self-care (01) ==
LOC: SURG 07:27
PROVIDERS: ATTEND Surgery
DX: K80.10 Calculus of gallbladder with chronic cholecystitis without obstruction (principal); I10 Essential (primary) hypertension; E78.00 Pure hypercholesterolemia, unspecified; Z85.038 Personal history of other malignant neoplasm of large intestine; Z90.710 Acquired absence of both cervix and uterus; Z98.890 Other specified postprocedural states; Z79.899 Other long term (current) drug therapy; Z93.3 Colostomy status; Z82.49 Family history of ischemic heart disease and other diseases of the circulatory system
CPT/HCPCS: 47563; 74300; A7015; J0690; J0780; J1100; J2001; J2405; J2704; J2710; J3010; J3490; J7030; Q9967; 88304; J1610

== ENCOUNTER 2019-12-06 08:22 | Emergency (ER) | payer MEDICAID, MEDICARE ==
[~2019-12-06] VITALS: Ht 162.6 cm; Wt 72.2 kg
[~2019-12-06 08:22] MED LIST changes: -BUPIVACAINE-EPI 0.25%-1:200000 MPF 30 ML VIAL. ONE; -DEXAMETHASONE SOD PHOS 4 MG/ML VIAL ONE; -GLUCAGON,HUMAN RECOMBINANT 1 MG/ML VIAL. ONE; -GLYCOPYRROLATE 1 MG/5 ML VIAL. ONE; -HYDROcodone/APAP 5/325MG 1 TAB TABLET ONE; -HYDROcodone/APAP 5/325MG 1 TAB TABLET PO ONE; -HYDROmorphone 2 MG/ML VIAL IV PRN; -IOHEXOL 300 MG/ML 50 ML VIAL. ONE; -IV RINGERS,LACTATED 1000ML 1,000 ML IV SCH; -LIDOCAINE 1% PF 2 ML VIAL. ID PRN; -LIDOCAINE 2% PF 5 ML VIAL. ONE; +MECL-75 PO; -MECL25TA3 PO; -MORPHINE SULFATE 2 MG/ML VIAL. IV PRN; -NEOSTIGMINE METHYLSULFATE 5 MG/5 ML SYRINGE. ONE; -ONDANSETRON PF 4 MG/2 ML VIAL. IV PRN; -ONDANSETRON PF 4 MG/2 ML VIAL. ONE; -PROCHLORPERAZINE 10 MG/2 ML VIAL. IV PRN; -PROCHLORPERAZINE 10 MG/2 ML VIAL. ONE; -PROPOFOL 20 ML IV ONE; -SURGICEL HEMOSTAT 4X8 EACH. ONE; -fentaNYL PF VIAL 100 MCG/2 ML VIAL IV PRN; -fentaNYL PF VIAL 100 MCG/2 ML VIAL ONE
[2019-12-06 08:47] VITALS: BP 156/80
--- NOTE | 2019-12-06 09:03 | PHYS DOC ---
Past Medical History Past Medical History: Cancer, High Cholesterol, Hypertension, Other Additional Past Medical Histor: COLON CA Past Surgical History: Appendectomy, Colectomy, Hysterectomy, Other Additional Past Surgical Histo: COLOSTOMY AND TAKEDOWN Smoking Status: Never Smoker Alcohol Use: None Drug Use: None Adult General Chief Complaint Chief Complaint: LOWER BACK PAIN OR INJURY [facility] Patient is a 79 year old female who presents with complaint of right low back pain. Her pain has been constant for the past 3-4 weeks but occasionally flares up with movement. She states that occasionally she will have a sharp pain that shoots across her back. She denies known injury. Has been going to a chiropractor for a couple of weeks without relief. No medications taken prior to arrival. She denies hematuria or dysuria but states that she has had decreased urination over the past couple of weeks. No fever or chills reported. No diarrhea or constipation. Review of Systems Review of Systems All other ROS is negative unless otherwise stated in [facility] Allergies Allergies Allergies Coded Allergies Type Severity Reaction Last Updated Verified No Known Drug Allergies 05/08/19 No Physical Exam Physical Exam See above Constitutional: Well developed, well nourished, no acute distress, non-toxic appearance. [] HENT: Normocephalic, atraumatic, bilateral external ears normal, oropharynx moist, no oral exudates, nose normal. [] Eyes: PERRLA, EOMI, conjunctiva normal, no discharge. [] Neck: Normal range of motion, no tenderness, supple, no stridor. [] Cardiovascular:Heart rate regular rhythm, no murmur [] Lungs & Thorax: Bilateral breath sounds clear to auscultation [] Abdomen: Bowel sounds normal, soft, no tenderness, no masses, no pulsatile masses. [] Skin: Warm, dry, no erythema, no rash. [] Back: Tenderness to palpation of the right lumbar region. No CVA tenderness. Extremities: No tenderness, no cyanosis, no clubbing, ROM intact, no edema. [] Neurologic: Alert and oriented X 3, normal motor function, normal sensory function, no focal deficits noted. [] Psychologic: Affect normal, judgement normal, mood normal. [] Current Patient Data Vital Signs Vital Signs Date Time Temp Pulse Resp B/P (MAP) Pulse Ox O2 Delivery O2 Flow Rate FiO2 12/06/19 08:47 98.1 92 18 156/80 (105) 97 Room Air 98.1 Lab Values Laboratory Tests Test 12/06/19 08:42 Urine Collection Type Unknown Urine Color Yellow Urine Clarity Clear Urine pH 5.0 Urine Specific [place] 1.020 Urine Protein Negative mg/dL (NEG-TRACE) Urine Glucose (UA) Negative mg/dL (NEG) Urine Ketones (Stick) Negative mg/dL (NEG) Urine Blood Negative (NEG) Urine Nitrite Negative (NEG) Urine Bilirubin Negative (NEG) Urine Urobilinogen Dipstick 0.2 mg/dL (0.2 mg/dL) Urine Leukocyte Esterase Small (NEG) Urine RBC 0 /HPF (0-2) Urine WBC 1-4 /HPF (0-4) Urine Squamous Epithelial Cells Mod /LPF Urine Bacteria Few /HPF (0-FEW) Urine Hyaline Casts Many /HPF Urine Mucus Slight /LPF EKG EKG [] Radiology/Procedures Radiology/Procedures [] Course & Med Decision Making Course & Med Decision Making Pertinent Labs and Imaging studies reviewed. (See chart for details) 0903: Patient seen for right lumbar pain. Examination reveals tenderness to palpation. Differential diagnosis includes muscular skeletal injury, UTI, ureterolithiasis. 1017: Patient's urinalysis shows a very mild infection so we'll start her on Bactrim twice daily for 3 days. There is no evidence of ureterolithiasis. Patient will be given Flexeril at night for low back pain likely from a musculoskeletal nature and I will start her on an anti-inflammatory. She is to follow-up with her primary care physician next week. Patient is stable for discharge. Dragon Disclaimer Dragon Disclaimer This electronic medical record was generated, in whole or in part, using a voice recognition dictation system. Departure Departure Impression: Primary Impression: UTI (urinary tract infection) Additional Impression: Right lumbar pain Disposition: HOME, SELF-CARE Condition: STABLE Referrals: LUI CERON (PCP) Please follow up in 5-7 days Patient Instructions: Low Back Strain with Rehab-[facility] Scripts Diclofenac Sodium (DICLOFENAC SODIUM) 75 Mg Tablet. 1 TAB PO BID for 10 Days, #20 TAB 1 Refill Prov: SARAH KESSLER DO 12/06/19 Cyclobenzaprine Hcl (CYCLOBENZAPRINE HCL) 10 Mg Tablet 1 TAB PO HS for 10 Days, #10 TAB Prov: SARAH KESSLER DO 12/06/19 Sulfamethoxazole/Trimethoprim (BACTRIM DS TABLET) 1 Each Tablet 1 TAB PO BID for infection for 3 Days, #6 TAB Prov: SARAH KESSLER DO 12/06/19 Problem Qualifiers SARAH KESSLER DO Dec 06, 2019 09:03
[2019-12-06 09:12] LABS: BILIRUBIN,URINE NEGATIVE (NEG); CLARITY,URINE CLEAR; COLOR,URINE YELLOW; NITRITE,URINE NEGATIVE (NEG); PROTEIN,URINE NEGATIVE (NEG-TRACE); UROBILINOGEN,URINE 0.2 mg/dL (0.2 mg/dL)
[2019-12-06 09:31] LABS: BACTERIA,URINE FEW /HPF (0-FEW); RBC,URINE 0 /HPF (0-2); SQUAMOUS EPITHELIAL CELL,UR MOD /LPF
[2019-12-06 09:32] LABS: HYALINE CASTS, URINE MANY /HPF
[2019-12-06] MEDS ORDERED: CYCL10TA2 PO (10:21)
[2019-12-06] MEDS ORDERED: DICL75TA PO (10:21)
[2019-12-06] MEDS ORDERED: SULF1TAB24 PO (10:21)
== END 2019-12-06 10:40 | disposition home or self-care (01) ==
LOC: ER 08:22
DX: N39.0 Urinary tract infection, site not specified (principal); E78.00 Pure hypercholesterolemia, unspecified; I10 Essential (primary) hypertension; Z90.89 Acquired absence of other organs; Z90.710 Acquired absence of both cervix and uterus; Z90.49 Acquired absence of other specified parts of digestive tract; Z93.3 Colostomy status
CPT/HCPCS: 81001; 87086; 99284

== ENCOUNTER 2020-06-13 10:12 | Inpatient (IN) | payer MEDICAID, MEDICARE ==
[~2020-06-13] VITALS: Ht 165.1 cm; Wt 73.5 kg
[~2020-06-13 10:12] MED LIST changes: +CYCL10TA2 PO; +DICL75TA PO; +SULF1TAB24 PO
[2020-06-13] MEDS ORDERED: IV NORMAL SALINE 1000ML BAG 1,000 ML IV ONE (10:15)
[2020-06-13 10:51] LABS: BASO % 0 % (0-3); EOS % 0 % (0-3); HEMATOCRIT 41.8 % (36.0-47.0); HEMOGLOBIN 14.3 g/dL (12.0-15.5); LYMPH # 1.1 x10^3/uL (1.0-4.8); LYMPH % 13 % (24-48); MEAN CORPUSCULAR HEMOGLOBIN 31 pg (25-35); MEAN CORPUSCULAR HGB CONC 34 g/dL (31-37); MEAN CORPUSCULAR VOLUME 91 fL (79-100); MONO # 0.7 x10^3/uL (0.0-1.1); MONO % 8 % (0-9); NEUT # 6.6 x10^3/uL (1.8-7.7); NEUT % 78 % (31-73); PLATELET COUNT 242 x10^3/uL (140-400); RED BLOOD COUNT 4.61 x10^6/uL (3.50-5.40); WHITE BLOOD COUNT 8.4 x10^3/uL (4.0-11.0)
--- NOTE | 2020-06-13 10:55 | PHYS DOC ---
Past Medical History Past Medical History: Cancer, High Cholesterol, Hypertension, Other Additional Past Medical Histor: COLON CA,OSTEOARTHRITIS Past Surgical History: Appendectomy, Colectomy, Hysterectomy, Other Additional Past Surgical Histo: COLOSTOMY/[place] Smoking Status: Never Smoker Alcohol Use: None Drug Use: None General Adult EDM: Chief Complaint: ABDOMINAL PAIN HPI: HPI: Patient is a 80-year-old female presenting to the ED with abdominal pain that started 1 week ago. Patient has a prior history of colon cancer in 2001 and is status post resection and colostomy takedown. History of abdominal surgery and states that she has "adhesions and scar tissue" and has had this type of pain before. Patient's pain is located in the lower left quadrant and is worse when she consistently eats meals and is associated with nausea and vomiting. Pain is made better by not eating, using laxatives, and laying down. Patient is currently treated for hypertension. Patient denies chest pain, subjective fever, changes in bowel habits, any hematemesis, or hematochezia. She has had these kind of episodes at least 3 times in the past per records, it resolves with symptomatic treatment only. Denies known sick contacts. Review of Systems: Review of Systems: Constitutional: Denies fever or chills Eyes: Denies redness or eye pain HENT: Denies nasal congestion or sore throat Respiratory: Denies cough or shortness of breath Cardiovascular: Denies chest pain or palpitations GI: Endorses abdominal pain, nausea and vomiting : Denies dysuria or hematuria Musculoskeletal: Denies back pain or joint pain Integument: Denies rash or skin lesions Neurologic: Denies headache, focal weakness or sensory changes Complete systems were reviewed and found to be within normal limits, except as documented in this note. Current Medications: Current Medications Medications (Trade) Dose Ordered Sig/Javi Start Time Stop Time Status Last Admin Dose Admin Sodium Chloride 1,000 ml @ 1,000 mls/hr 1X ONCE 06/13/20 10:15 06/13/20 11:14 06/13/20 10:49 1,000 MLS/HR Allergies: Allergies: Allergies Coded Allergies Type Severity Reaction Last Updated Verified No Known Drug Allergies 05/08/19 No Physical Exam: PE: Constitutional: Well developed, well nourished, no acute distress, non-toxic appearance HENT: Normocephalic, atraumatic Eyes: PERRL, EOMI, conjunctiva normal, no discharge Neck: Normal range of motion, supple Lungs & Thorax: No respiratory distress, equal chest rise and fall Abdomen: Soft, LLQ tenderness with guarding Skin: Warm, dry, no erythema, no rash Back: No tenderness, no CVA tenderness Extremities: No tenderness, ROM intact, no edema Neurologic: Alert and oriented X 3, normal motor function, normal sensory function, no focal deficits noted Psychologic: Affect normal, judgment normal Current Patient Data: Vital Signs: Vital Signs Date Time Temp Pulse Resp B/P (MAP) Pulse Ox O2 Delivery O2 Flow Rate FiO2 06/13/20 10:18 99.0 95 20 176/83 (114) 95 Room Air 99.0 EKG: EK06/13/2020 at 1031 hours, heart rate 86 bpm, normal sinus rhythm, QRS 80 ms, QT/QTc 360/434 ms, possible atrial premature complexes Radiology/Procedures: Radiology/Procedures: PROCEDURE: CT ABDOMEN PELVIS WO CONTRAST PQRS Compliance Statement: One or more of the following individualized dose reduction techniques were utilized for this examination: 1. Automated exposure control 2. Adjustment of the mA and/or kV according to patient size 3. Use of iterative reconstruction technique CT abdomen/pelvis without contrast 06/13/2020 11:33 AM INDICATION: Left lower quadrant pain, nausea COMPARISON: CT angiography abdomen 04/17/2019 TECHNIQUE: Multiple axial CT images of the abdomen and pelvis were obtained without intravenous contrast. Coronal and sagittal reformats are provided. FINDINGS: Lung bases are clear. There is bibasilar subsegmental atelectasis. Heart size is within within normal limits. Calcified right hilar lymph nodes are present. Mitral prosthesis or dense calcifications noted. No pericardial effusion. Evaluation of solid abdominal viscera is limited by lack of intravenous contrast. Gallbladder surgically absent. Calcifications within the liver and spleen likely represent sequela prior granulomatous exposure. Abdominal aorta is normal in course and caliber with dense calcified atheromatous plaque. No pathologically enlarged lymph nodes are identified in abdomen and pelvis. Small fat-containing left inguinal hernia. No significant free intraperitoneal air. There may be trace pelvic free fluid. Kidneys are normal in appearance. No hydronephrosis or suspicious renal mass. There is mild inflammation involving the gastric antrum which could represent nonspecific gastritis. There is circumferential wall thickening with mural edema involving the sigmoid colon from the level of the left ventral abdominal hernia repair mesh distally towards the rectosigmoid junction. No definite bowel obstruction. Patchy sclerosis involving the iliac bones could reflect sequela of sacral insufficiency fractures. There is focal trabecular thickening along the left iliac bone with cortical thickening and central sclerosis. Findings are stable. IMPRESSION: 1. Findings most suggestive of colitis of infectious/inflammatory etiology involving entire sigmoid colon the level of the left ventral abdominal hernia mesh distally toward the rectosigmoid junction. No free intraperitoneal air or pericolonic abscess. 2. Focal wall thickening and adjacent inflammation involving the gastric antrum just above nonspecific gastritis. There is subtle inflammation within the mesenteric root and adjacent to the left adrenal gland. Adrenal glands are otherwise normal in appearance. 3. Appearance of the sacrum and left iliac bone appears stable dating back to 03/12/2016. Benign etiology. Electronically signed by: Beverly Koo MD (06/13/2020 12:01 PM) [facility] Course & Med Decision Making: Course & Med Decision Making Pertinent Labs and Imaging studies reviewed. (See chart for details) Patient is a 80-year-old female presenting to the ED with abdominal pain. Physical exam shows tenderness to palpation of the left lower quadrant. Per past chart review and patient interview, as these left lower quadrant abdominal pain episodes which resolved with symptomatic treatment only. Patient's abdominal pain is likely related to adhesions and scar tissue related to her abdominal surgeries. Laboratory hematology is unremarkable for any pertinent findings. Urine chemistry shows a lactate at 2.1, BUN of 27, and a creatinine of 1.3. Urinalysis is unremarkable. Abdominal CT shows findings suggestive of colitis in the sigmoid colon but no free intraperitoneal peritoneal air or pericolic abscesses. Due to patient's CT findings, age, inability to keep liquids down patient is being admitted for further evaluation and treatment. Empiric antibiotics initiated. Discussed with Dr. Sanchez (hospitalist) who is in agreement with admission. Discussed findings and plan with patient and family, who acknowledge understanding and agreement. Rolo Disclaimer: Rolo Disclaimer: This electronic medical record was generated, in whole or in part, using a voice recognition dictation system. Departure Departure Impression: Primary Impression: Acute colitis Additional Impressions: Dehydration Lactic acidosis Disposition: ADMITTED INPATIENT Admitting Physician: JESSIE Diggs) Condition: STABLE Referrals: LUI CERON (PCP) Justicifation of Admission Dx: Justifications for Admission: Justification of Admission Dx: Yes Comments: Acute colitis, lactic acidosis, dehydration DARIUS BERMEO DO Jun 13, 2020 10:55
[2020-06-13 10:57] LABS: BILIRUBIN,URINE MODERATE (NEG); CLARITY,URINE CLEAR; COLOR,URINE YELLOW; NITRITE,URINE NEGATIVE (NEG); PH,URINE 5.5 (<5.0-8.0); PROTEIN,URINE 30 mg/dL (NEG-TRACE); UROBILINOGEN,URINE 0.2 mg/dL (0.2 mg/dL)
[2020-06-13 11:01] LABS: PROTHROMBIN TIME PATIENT 13.8 SEC (11.7-14.0)
[2020-06-13 11:03] LABS: CALCIUM 8.9 mg/dL (8.5-10.1); CREATININE 1.3 mg/dL (0.6-1.0); GFR 39.5; POTASSIUM 3.6 mmol/L (3.5-5.1)
[2020-06-13 11:05] LABS: HYALINE CASTS, URINE MODERATE /HPF; SQUAMOUS EPITHELIAL CELL,UR MOD /LPF
[2020-06-13 11:06] LABS: BACTERIA,URINE FEW /HPF (0-FEW)
[2020-06-13 11:08] LABS: ALBUMIN 3.9 g/dL (3.4-5.0); ALBUMIN/GLOBULIN RATIO 1.1 (1.0-1.7); MAGNESIUM 2.3 mg/dL (1.8-2.4); TOTAL BILIRUBIN 0.7 mg/dL (0.2-1.0); TOTAL PROTEIN 7.3 g/dL (6.4-8.2)
[2020-06-13 11:29] LABS: CREATINE KINASE 64 U/L (26-192)
--- NOTE | 2020-06-13 12:03 | RAD ---
PQRS Compliance Statement: One or more of the following individualized dose reduction techniques were utilized for this examination: 1. Automated exposure control 2. Adjustment of the mA and/or kV according to patient size 3. Use of iterative reconstruction technique CT abdomen/pelvis without contrast 06/13/2020 11:33 AM INDICATION: Left lower quadrant pain, nausea COMPARISON: CT angiography abdomen 04/17/2019 TECHNIQUE: Multiple axial CT images of the abdomen and pelvis were obtained without intravenous contrast. Coronal and sagittal reformats are provided. FINDINGS: Lung bases are clear. There is bibasilar subsegmental atelectasis. Heart size is within within normal limits. Calcified right hilar lymph nodes are present. Mitral prosthesis or dense calcifications noted. No pericardial effusion. Evaluation of solid abdominal viscera is limited by lack of intravenous contrast. Gallbladder surgically absent. Calcifications within the liver and spleen likely represent sequela prior granulomatous exposure. Abdominal aorta is normal in course and caliber with dense calcified atheromatous plaque. No pathologically enlarged lymph nodes are identified in abdomen and pelvis. Small fat-containing left inguinal hernia. No significant free intraperitoneal air. There may be trace pelvic free fluid. Kidneys are normal in appearance. No hydronephrosis or suspicious renal mass. There is mild inflammation involving the gastric antrum which could represent nonspecific gastritis. There is circumferential wall thickening with mural edema involving the sigmoid colon from the level of the left ventral abdominal hernia repair mesh distally towards the rectosigmoid junction. No definite bowel obstruction. Patchy sclerosis involving the iliac bones could reflect sequela of sacral insufficiency fractures. There is focal trabecular thickening along the left iliac bone with cortical thickening and central sclerosis. Findings are stable. IMPRESSION: 1. Findings most suggestive of colitis of infectious/inflammatory etiology involving entire sigmoid colon the level of the left ventral abdominal hernia mesh distally toward the rectosigmoid junction. No free intraperitoneal air or pericolonic abscess. 2. Focal wall thickening and adjacent inflammation involving the gastric antrum just above nonspecific gastritis. There is subtle inflammation within the mesenteric root and adjacent to the left adrenal gland. Adrenal glands are otherwise normal in appearance. 3. Appearance of the sacrum and left iliac bone appears stable dating back to 03/12/2016. Benign etiology. Electronically signed by: Beverly Koo MD (06/13/2020 12:01 PM) [facility]
[2020-06-13] MEDS ORDERED: cefTRIAXone IV Push 1 GM VIAL. IVP ONE (12:45)
[2020-06-13] MEDS ORDERED: ONDANSETRON PF 4 MG/2 ML VIAL. IVP ONE (13:00)
[2020-06-13] MEDS ORDERED: fentaNYL PF VIAL 100 MCG/2 ML VIAL IVP ONE (13:00)
[2020-06-13] MEDS: IV NORMAL SALINE 1000ML BAG 1,000 ML IV SCH ×2 (13:11→22:24)
[2020-06-13] MEDS ORDERED: ONDANSETRON PF 4 MG/2 ML VIAL. IV PRN (13:15)
[2020-06-13] MEDS ORDERED: fentaNYL PF VIAL 100 MCG/2 ML VIAL IV PRN (13:15)
[2020-06-13 15:00] VITALS: BP 165/51
--- NOTE | 2020-06-13 16:24 | NUR ---
Patient Ms. Anushka Rubio, 80 year-old female admitted for colitis arrived on the unit via wheelchair at 1440. She is awake, alert, oriented x 4. She rates her abdominal pain at 2/10. The patient was oriented to the unit, belongings checked and call light placed within reach.
[2020-06-13 19:00] VITALS: BP 151/57
--- NOTE | 2020-06-13 19:19 | HP ---
ADMIT DATE: 06/13/2020 CHIEF COMPLAINT: Abdominal pain. HISTORY OF PRESENT ILLNESS: The patient is a pleasant middle-aged female who presents with abdominal pain, rates it 7/10, has been occurring for about a week, but it got worse in the past 24 hours. She increased her home meds, but that did not work, described as agonizing, worse with food, better with no food. We did some imaging in the ER. She does have colitis on the CAT scan of the abdomen. I discussed the case with ER physician. We are going to admit the patient, give her IV antibiotics and consult GI. PAST MEDICAL HISTORY: Colostomy with takedown, hypertension, hyperlipidemia, colon cancer, osteoarthritis, appendectomy, colectomy, and hysterectomy. ALLERGIES: None. FAMILY HISTORY: Colon cancer. SOCIAL HISTORY: She does not drink, smoke, or take drugs. MEDICATIONS: Reviewed, please refer to the MRAD. REVIEW OF SYSTEMS: GENERAL: No history of weight change, weakness or fevers. SKIN: No bruising, hair changes or rashes. EYES: No blurred, double or loss of vision. NOSE AND THROAT: No history of nosebleeds, hoarseness or sore throat. HEART: No history of palpitations, chest pain or shortness of breath on exertion. LUNGS: Denies cough, hemoptysis, wheezing or shortness of breath. GASTROINTESTINAL: She complains of abdominal pain. GENITOURINARY: No history of frequency, urgency, hesitancy or nocturia. NEUROLOGIC: Denies history of numbness, tingling, tremor or weakness. PSYCHIATRIC: No history of panic, anxiety or depression. ENDOCRINE: No history of heat or cold intolerance, polyuria or polydipsia. EXTREMITIES: Denies muscle weakness, joint pain, pain on walking or stiffness. PHYSICAL EXAMINATION: VITALS: Within normal limits and are stable. GENERAL: No apparent distress. Alert and oriented. HEENT: Normal cephalic atraumatic, external auditory canals are patent EYES: Extraocular muscles are intact, pupils are equally round and reactive to light and accommodation MUSCULOSKELETAL: Well developed, well nourished, good range of motion ENDOCRINE: No thyromegaly was palpated LYMPHATICS: No cervical chain or axillary nodes were noted HEMATOPOIETIC: No bruising NECK: Supple, no JVD, no thyromegaly was noted. LUNGS: Clear to auscultation in all lung brito without rhonchi or wheezing. HEART: RRR, S1, S2 present. Peripheral pulses intact, no obvious murmurs were noted. ABDOMEN: Soft, nontender. Positive bowel sounds no organomegaly, normal bowel sounds. EXTREMITIES: Without any cyanosis, clubbing, or edema. Pedal pulses intact, Homans sign is negative. NEUROLOGIC: Normal speech, normal tone. A and O x3, moves all extremities, no obvious focal deficits. PSYCHIATRIC: Normal affect, normal mood. Stable. SKIN: No ulcerations or rashes, good skin turgor, no jaundice. VASCULAR: Good capillary refill, neurovascular bundle appears to be intact. DIAGNOSTIC DATA: CT of the abdomen shows colitis. ASSESSMENT AND PLAN: Colitis. The patient is amenable to start IV antibiotics, IV fluids, p.r.n. Zofran, consult GI, home meds, DVT prophylaxis. Full code. PROGNOSIS: Long-term, guarded. DORA ADAMS DO DR: REYNALDO/kurtis JOB#: [id number] / [id number]
[2020-06-13] MEDS: ATORVASTATIN CALCIUM 10 MG TABLET. PO SCH (20:37)
[2020-06-13 23:00] VITALS: BP 138/55
[2020-06-14 03:00] VITALS: BP 124/57
[2020-06-14 07:00] VITALS: BP 168/52
[2020-06-14] MEDS: LISINOPRIL 20 MG TABLET PO SCH (08:31)
[2020-06-14] MEDS: IV NORMAL SALINE 1000ML BAG 1,000 ML IV SCH (08:32)
[2020-06-14 11:00] VITALS: BP 144/54
--- NOTE | 2020-06-14 13:22 | PDOC ---
[employer] PROGRESS NOTE Date of Service DOS: DATE: 06/14/20 TIME: 13:18 Chief Complaint Chief Complaint Abdominal pain History of Present Illness History of Present Illness Patient states she has had a history of recurrent abdominal pain occurring roughly 2 times a year, secondary to abdominal adhesions. Her current pain feels similar to her history of chronic recurrent abdominal pain. She also reports a chronic history of diarrhea. She states her pain is improving. Vitals/I&O Vitals/I&O: Vital Signs Date Time Temp Pulse Resp B/P (MAP) Pulse Ox O2 Delivery O2 Flow Rate FiO2 06/14/20 11:00 98.7 71 18 144/54 (84) 94 Room Air 98.7 06/14/20 08:05 2.0 I & O 06/13/20 06/13/20 06/14/20 15:00 23:00 07:00 Intake Total 1100 ml Balance 1100 ml Labs Labs: Laboratory Tests Test 06/13/20 14:25 Lactic Acid Level 0.8 mmol/L (0.4-2.0) Assessment and Plan Assessmemt and Plan Problems Medical Problems: (1) Acute colitis Status: Acute (2) Dehydration Status: Acute (3) Lactic acidosis Status: Acute Plan: Rule out C. difficile colitis. Current presentation may just be a flare of her cyclical abdominal pain secondary to abdominal adhesions. Comment Review of Relevant I have reviewed the following items sana (where applicable) has been applied. Medications: Current Medications Medications (Trade) Dose Ordered Sig/Javi Route PRN Reason Start Time Stop Time Status Last Admin Dose Admin Lisinopril (Prinivil) 20 mg DAILY PO 06/14/20 09:00 06/14/20 08:31 Atorvastatin Calcium (Lipitor) 5 mg QHS PO 06/13/20 21:00 06/13/20 20:37 Metronidazole 100 ml @ 100 mls/hr Q8HRS IV 06/13/20 22:00 06/14/20 06:04 Justifications for Admission Other Justification OZZIE VILLEDA MD Jun 14, 2020 13:22
--- NOTE | 2020-06-14 14:40 | PDOC2 ---
CONSULT Date of Consult Date of Consult DATE: 06/14/20 TIME: 14:37 Reason for Consult Reason for Consult: Abd pain/hx colon cancer/mesh/abnl ct scan with colitis Past Medical History Cardiovascular: HTN, Hyperlipidemia Heme/Onc: Cancer Past Surgical History Past Surgical History: Appendectomy, Cholecystectomy, Hysterectomy, Colectomy Social History ALCOHOL: none Drugs: None Lives: Alone Current Problem List Problem List Problems Medical Problems: (1) Acute colitis Status: Acute (2) Dehydration Status: Acute (3) Lactic acidosis Status: Acute Current Medications Current Medications Current Medications Sodium Chloride 1,000 ml @ 1,000 mls/hr 1X ONCE IV Last administered on 06/13/20at 10:49; Start 06/13/20 at 10:15; Stop 06/13/20 at 11:14; Status DC Ceftriaxone Sodium (Rocephin) 1 gm 1X ONCE IVP Last administered on 06/13/20at 12:56; Start 06/13/20 at 12:45; Stop 06/13/20 at 12:46; Status DC Metronidazole 100 ml @ 100 mls/hr 1X ONCE IV Last administered on 06/13/20at 12:56; Start 06/13/20 at 12:45; Stop 06/13/20 at 13:44; Status DC Ondansetron HCl (Zofran) 4 mg 1X ONCE IVP Last administered on 06/13/20at 12:59; Start 06/13/20 at 13:00; Stop 06/13/20 at 13:01; Status DC Fentanyl Citrate (Fentanyl 2ml Vial) 50 mcg 1X ONCE IVP Last administered on 06/13/20at 13:06; Start 06/13/20 at 13:00; Stop 06/13/20 at 13:01; Status DC Ondansetron HCl (Zofran) 4 mg PRN Q8HRS PRN IV NAUSEA/VOMITING; Start 06/13/20 at 13:15; Stop 06/14/20 at 13:14; Status DC Fentanyl Citrate (Fentanyl 2ml Vial) 25 mcg Q2HR PRN IV PAIN; Start 06/13/20 at 13:15; Stop 06/14/20 at 13:14; Status DC Sodium Chloride 1,000 ml @ 100 mls/hr Q10H IV Last administered on 06/14/20at 08:32; Start 06/13/20 at 13:04; Stop 06/14/20 at 13:03; Status DC Lisinopril (Prinivil) 20 mg DAILY PO Last administered on 06/14/20at 08:31; Start 06/14/20 at 09:00 Atorvastatin Calcium (Lipitor) 5 mg QHS PO Last administered on 06/13/20at 20:37; Start 06/13/20 at 21:00 Meclizine HCl (Antivert) 25 mg PRN Q6HRS PRN PO DIZZINESS; Start 06/13/20 at 19:00 Metronidazole 100 ml @ 100 mls/hr Q8HRS IV Last administered on 06/14/20at 06:04; Start 06/13/20 at 22:00 Lactobacillus Rhamnosus (Culturelle) 1 cap BID PO ; Start 06/14/20 at 21:00 Active Scripts Active Reported Meclizine Hcl 25 Mg Tablet 25 Mg PO PRN PRN Lisinopril 20 Mg Tablet 1 Tab PO DAILY Lovastatin 20 Mg Tablet 20 Mg PO HS Allergies Allergies: Coded Allergies: No Known Drug Allergies (Unverified , 05/08/19) Vitals VITALS Vital Signs Date Time Temp Pulse Resp B/P (MAP) Pulse Ox O2 Delivery O2 Flow Rate FiO2 06/14/20 11:00 98.7 71 18 144/54 (84) 94 Room Air 98.7 06/14/20 08:05 2.0 Labs Labs Laboratory Tests Test 06/13/20 10:24 06/13/20 10:32 06/13/20 14:25 Urine Collection Type Void Urine Color Yellow Urine Clarity Clear Urine pH 5.5 (<5.0-8.0) Urine Specific [place] 1.025 (1.000-1.030) Urine Protein 30 mg/dL (NEG-TRACE) Urine Glucose (UA) Negative mg/dL (NEG) Urine Ketones (Stick) >=80 mg/dL (NEG) Urine Blood Negative (NEG) Urine Nitrite Negative (NEG) Urine Bilirubin Moderate (NEG) Urine Urobilinogen Dipstick 0.2 mg/dL (0.2 mg/dL) Urine Leukocyte Esterase Negative (NEG) Urine RBC 1-2 /HPF (0-2) Urine WBC 5-10 /HPF (0-4) Urine Squamous Epithelial Cells Mod /LPF Urine Renal Epithelial Cells Few /LPF Urine Bacteria Few /HPF (0-FEW) Urine Hyaline Casts Moderate /HPF Urine Mucus Marked /LPF White Blood Count 8.4 x10^3/uL (4.0-11.0) Red Blood Count 4.61 x10^6/uL (3.50-5.40) Hemoglobin 14.3 g/dL (12.0-15.5) Hematocrit 41.8 % (36.0-47.0) Mean Corpuscular Volume 91 fL (79-100) Mean Corpuscular Hemoglobin 31 pg (25-35) Mean Corpuscular Hemoglobin Concent 34 g/dL (31-37) Red Cell Distribution Width 13.0 % (11.5-14.5) Platelet Count 242 x10^3/uL (140-400) Neutrophils (%) (Auto) 78 % (31-73) Lymphocytes (%) (Auto) 13 % (24-48) Monocytes (%) (Auto) 8 % (0-9) Eosinophils (%) (Auto) 0 % (0-3) Basophils (%) (Auto) 0 % (0-3) Neutrophils # (Auto) 6.6 x10^3/uL (1.8-7.7) Lymphocytes # (Auto) 1.1 x10^3/uL (1.0-4.8) Monocytes # (Auto) 0.7 x10^3/uL (0.0-1.1) Eosinophils # (Auto) 0.0 x10^3/uL (0.0-0.7) Basophils # (Auto) 0.0 x10^3/uL (0.0-0.2) Prothrombin Time 13.8 SEC (11.7-14.0) Prothromb Time International Ratio 1.1 (0.8-1.1) Activated Partial Thromboplast Time 25 SEC (24-38) Sodium Level 140 mmol/L (136-145) Potassium Level 3.6 mmol/L (3.5-5.1) Chloride Level 102 mmol/L (98-107) Carbon Dioxide Level 23 mmol/L (21-32) Anion Gap 15 (6-14) Blood Urea Nitrogen 27 mg/dL (7-20) Creatinine 1.3 mg/dL (0.6-1.0) Estimated GFR (Cockcroft-Gault) 39.5 BUN/Creatinine Ratio 21 (6-20) Glucose Level 106 mg/dL (70-99) Lactic Acid Level 2.1 mmol/L (0.4-2.0) 0.8 mmol/L (0.4-2.0) Calcium Level 8.9 mg/dL (8.5-10.1) Magnesium Level 2.3 mg/dL (1.8-2.4) Total Bilirubin 0.7 mg/dL (0.2-1.0) Aspartate Amino Transf (AST/SGOT) 13 U/L (15-37) Alanine Aminotransferase (ALT/SGPT) 14 U/L (14-59) Alkaline Phosphatase 70 U/L (46-116) Creatine Kinase 64 U/L (26-192) Creatine Kinase MB (Mass) 1.8 ng/mL (0.0-3.6) Creatine Kinase MB Relative Index % (0-4) Troponin I Quantitative 0.039 ng/mL (0.000-0.055) Total Protein 7.3 g/dL (6.4-8.2) Albumin 3.9 g/dL (3.4-5.0) Albumin/Globulin Ratio 1.1 (1.0-1.7) Lipase 50 U/L (73-393) Assessment/Plan Assessment/Plan LLQ abd pain- with abnl Ct scan, prior colon cancer resection, and mesh. With recurrent episodes, adhesions and/or mesh lead differential. Ischemic colitis, and/or infectious colitis with recurrent episodes less likely. Plan advance diet surgery consult possible interval colonoscopy pending above. Full note dictated SIRI SIMMONS MD Jun 14, 2020 14:39
[2020-06-14 15:00] VITALS: BP 148/68
[2020-06-14 19:00] VITALS: BP 139/47
--- NOTE | 2020-06-14 19:51 | CONS ---
DATE OF CONSULTATION: 06/14/2020 REASON FOR CONSULTATION: Left lower quadrant abdominal pain and diarrhea. HISTORY OF PRESENT ILLNESS: This is a 80-year-old female with past medical history significant for hypertension, hyperlipidemia, history of colon cancer and colostomy takedown as well as osteoarthritis, appendectomy, hysterectomy, is admitted to [facility] with recurrent pain is described as being 7/10 in intensity, was crampy in nature, associated with loose stools. On this particular occasion, she has had episodes for 17 years, which typically occur once to twice a year with worsening symptoms, then clear with medical therapy. With recurrent disease, she requests additional evaluation. PAST MEDICAL HISTORY: History of colon cancer with colostomy, status post takedown, hypertension, hyperlipidemia, colon cancer, osteoarthritis, status post appendectomy, colectomy, hysterectomy. ALLERGIES: None. MEDICATIONS: Presently include lisinopril, metronidazole, calcium, meclizine. FAMILY AND SOCIAL HISTORY: She is retired. Does not drink or smoke. REVIEW OF SYSTEMS: Per records. PHYSICAL EXAMINATION: GENERAL: Reveals a well-nourished, well-developed female who is alert, cooperative, in mild distress. VITAL SIGNS: Temperature 97, pulse 81, respiratory rate 18, blood pressure 144/54. LUNGS: Clear. CARDIOVASCULAR: Reveals an S1, S2 without S3, S4 or appreciable murmur. ABDOMEN: Soft abdomen with left lower quadrant tenderness to deep palpation with midline surgical incisions. EXTREMITIES: Reveals no cyanosis, clubbing or edema. LABORATORY STUDIES: Sodium 140, potassium 3.6, chloride 102, bicarbonate is 23, BUN 27, creatinine 1.3, glucose is 106. Lactic acid 0.8, calcium 8.9, magnesium 2.3, total bilirubin 0.7, AST 13, ALT 14, alkaline phosphatase 70, total protein 7.3, albumin 3.5, lipase is 50. CT scan of the abdomen and pelvis does reveal circumferential wall thickening of sigmoid colon to the level of the rectum from the level of the left ventral abdominal hernia repair with mesh. No obstruction, no free air. IMPRESSION: Abdominal pain, history of colon cancer, status post resection, diverting colostomy and mesh. Differential includes ischemic colitis, mesh adhesions certainly are in the differential; therefore, recommend surgical consultation or additional evaluation and possible interval colonoscopy. Therefore, I recommend advancing her diet as tolerated. I would like to thank Dr. Le for allowing us to consult and participate in the patient's care. SIRI SIMMONS MD DR: GEORGIE/kurtis JOB#: [id number] / [id number]
[2020-06-14] MEDS: LACTOBACILLUS RHAMNOSUS GG 1 CAPSULE. PO SCH (20:30)
[2020-06-14] MEDS: ATORVASTATIN CALCIUM 10 MG TABLET. PO SCH (20:31)
[2020-06-14 23:00] VITALS: BP 134/42
[2020-06-15 03:00] VITALS: BP 125/59
[2020-06-15 07:00] VITALS: BP 168/63
[2020-06-15] MEDS: LISINOPRIL 20 MG TABLET PO SCH (08:40)
[2020-06-15] MEDS: LACTOBACILLUS RHAMNOSUS GG 1 CAPSULE. PO SCH ×2 (08:40→20:35)
--- NOTE | 2020-06-15 08:51 | PDOC2 ---
CONSULT Date of Consult Date of Consult DATE: 06/15/20 TIME: 08:48 Reason for Consult Reason for Consult: Abdominal pain abnormal CT scan findings Referring Physician Referring Physician: Radu Identification/Chief Complaint Chief Complaint Abdominal pain Source Source: Patient History of Present Illness Reason for Visit: 80-year-old female was mated to the hospital with abdominal pain and a CT scan showing thickened sigmoid colon consistent with colitis she does describe she has had some loose stools denies any blood in her stools. She has had chronic abdominal pain but describes this pain is on the left side consistent with CT findings. Past Medical History Cardiovascular: HTN, Hyperlipidemia Heme/Onc: Cancer Past Surgical History Past Surgical History: Appendectomy, Cholecystectomy, Hysterectomy, Colectomy Social History ALCOHOL: none Drugs: None Lives: Alone Current Problem List Problem List Problems Medical Problems: (1) Acute colitis Status: Acute (2) Dehydration Status: Acute (3) Lactic acidosis Status: Acute Current Medications Current Medications Current Medications Sodium Chloride 1,000 ml @ 1,000 mls/hr 1X ONCE IV Last administered on 06/13/20at 10:49; Start 06/13/20 at 10:15; Stop 06/13/20 at 11:14; Status DC Ceftriaxone Sodium (Rocephin) 1 gm 1X ONCE IVP Last administered on 06/13/20at 12:56; Start 06/13/20 at 12:45; Stop 06/13/20 at 12:46; Status DC Metronidazole 100 ml @ 100 mls/hr 1X ONCE IV Last administered on 06/13/20at 12:56; Start 06/13/20 at 12:45; Stop 06/13/20 at 13:44; Status DC Ondansetron HCl (Zofran) 4 mg 1X ONCE IVP Last administered on 06/13/20at 12:59; Start 06/13/20 at 13:00; Stop 06/13/20 at 13:01; Status DC Fentanyl Citrate (Fentanyl 2ml Vial) 50 mcg 1X ONCE IVP Last administered on 06/13/20at 13:06; Start 06/13/20 at 13:00; Stop 06/13/20 at 13:01; Status DC Ondansetron HCl (Zofran) 4 mg PRN Q8HRS PRN IV NAUSEA/VOMITING; Start 06/13/20 at 13:15; Stop 06/14/20 at 13:14; Status DC Fentanyl Citrate (Fentanyl 2ml Vial) 25 mcg Q2HR PRN IV PAIN; Start 06/13/20 at 13:15; Stop 06/14/20 at 13:14; Status DC Sodium Chloride 1,000 ml @ 100 mls/hr Q10H IV Last administered on 06/14/20at 08:32; Start 06/13/20 at 13:04; Stop 06/14/20 at 13:03; Status DC Lisinopril (Prinivil) 20 mg DAILY PO Last administered on 06/15/20at 08:40; Start 06/14/20 at 09:00 Atorvastatin Calcium (Lipitor) 5 mg QHS PO Last administered on 06/14/20at 20:31; Start 06/13/20 at 21:00 Meclizine HCl (Antivert) 25 mg PRN Q6HRS PRN PO DIZZINESS; Start 06/13/20 at 19:00 Metronidazole 100 ml @ 100 mls/hr Q8HRS IV Last administered on 06/15/20at 05:24 ; Start 06/13/20 at 22:00 Lactobacillus Rhamnosus (Culturelle) 1 cap BID PO Last administered on 06/15/20at 08:40; Start 06/14/20 at 21:00 Active Scripts Active Reported Meclizine Hcl 25 Mg Tablet 25 Mg PO PRN PRN Lisinopril 20 Mg Tablet 1 Tab PO DAILY Lovastatin 20 Mg Tablet 20 Mg PO HS Allergies Allergies: Coded Allergies: No Known Drug Allergies (Unverified , 05/08/19) ROS Gastrointestinal: Yes Abdominal Pain Physical Exam General: Alert, Oriented X3, Cooperative, mild distress HEENT: Atraumatic Lungs: Clear to auscultation, Normal air movement Heart: Regular rate, No murmurs Abdomen: Normal bowel sounds, Soft, Other (Tender to palpation along the right upper to right lower abdomen no peritoneal signs) Extremities: No edema Skin: No significant lesion Neuro: Normal speech Psych/Mental Status: Mental status NL Vitals VITALS Vital Signs Date Time Temp Pulse Resp B/P (MAP) Pulse Ox O2 Delivery O2 Flow Rate FiO2 06/15/20 08:40 63 168/63 06/15/20 07:00 98.6 17 94 Room Air 98.6 06/14/20 08:05 2.0 Labs Labs Laboratory Tests Test 06/13/20 10:24 06/13/20 10:32 06/13/20 14:25 Urine Collection Type Void Urine Color Yellow Urine Clarity Clear Urine pH 5.5 (<5.0-8.0) Urine Specific [place] 1.025 (1.000-1.030) Urine Protein 30 mg/dL (NEG-TRACE) Urine Glucose (UA) Negative mg/dL (NEG) Urine Ketones (Stick) >=80 mg/dL (NEG) Urine Blood Negative (NEG) Urine Nitrite Negative (NEG) Urine Bilirubin Moderate (NEG) Urine Urobilinogen Dipstick 0.2 mg/dL (0.2 mg/dL) Urine Leukocyte Esterase Negative (NEG) Urine RBC 1-2 /HPF (0-2) Urine WBC 5-10 /HPF (0-4) Urine Squamous Epithelial Cells Mod /LPF Urine Renal Epithelial Cells Few /LPF Urine Bacteria Few /HPF (0-FEW) Urine Hyaline Casts Moderate /HPF Urine Mucus Marked /LPF White Blood Count 8.4 x10^3/uL (4.0-11.0) Red Blood Count 4.61 x10^6/uL (3.50-5.40) Hemoglobin 14.3 g/dL (12.0-15.5) Hematocrit 41.8 % (36.0-47.0) Mean Corpuscular Volume 91 fL (79-100) Mean Corpuscular Hemoglobin 31 pg (25-35) Mean Corpuscular Hemoglobin Concent 34 g/dL (31-37) Red Cell Distribution Width 13.0 % (11.5-14.5) Platelet Count 242 x10^3/uL (140-400) Neutrophils (%) (Auto) 78 % (31-73) Lymphocytes (%) (Auto) 13 % (24-48) Monocytes (%) (Auto) 8 % (0-9) Eosinophils (%) (Auto) 0 % (0-3) Basophils (%) (Auto) 0 % (0-3) Neutrophils # (Auto) 6.6 x10^3/uL (1.8-7.7) Lymphocytes # (Auto) 1.1 x10^3/uL (1.0-4.8) Monocytes # (Auto) 0.7 x10^3/uL (0.0-1.1) Eosinophils # (Auto) 0.0 x10^3/uL (0.0-0.7) Basophils # (Auto) 0.0 x10^3/uL (0.0-0.2) Prothrombin Time 13.8 SEC (11.7-14.0) Prothromb Time International Ratio 1.1 (0.8-1.1) Activated Partial Thromboplast Time 25 SEC (24-38) Sodium Level 140 mmol/L (136-145) Potassium Level 3.6 mmol/L (3.5-5.1) Chloride Level 102 mmol/L (98-107) Carbon Dioxide Level 23 mmol/L (21-32) Anion Gap 15 (6-14) Blood Urea Nitrogen 27 mg/dL (7-20) Creatinine 1.3 mg/dL (0.6-1.0) Estimated GFR (Cockcroft-Gault) 39.5 BUN/Creatinine Ratio 21 (6-20) Glucose Level 106 mg/dL (70-99) Lactic Acid Level 2.1 mmol/L (0.4-2.0) 0.8 mmol/L (0.4-2.0) Calcium Level 8.9 mg/dL (8.5-10.1) Magnesium Level 2.3 mg/dL (1.8-2.4) Total Bilirubin 0.7 mg/dL (0.2-1.0) Aspartate Amino Transf (AST/SGOT) 13 U/L (15-37) Alanine Aminotransferase (ALT/SGPT) 14 U/L (14-59) Alkaline Phosphatase 70 U/L (46-116) Creatine Kinase 64 U/L (26-192) Creatine Kinase MB (Mass) 1.8 ng/mL (0.0-3.6) Creatine Kinase MB Relative Index % (0-4) Troponin I Quantitative 0.039 ng/mL (0.000-0.055) Total Protein 7.3 g/dL (6.4-8.2) Albumin 3.9 g/dL (3.4-5.0) Albumin/Globulin Ratio 1.1 (1.0-1.7) Lipase 50 U/L (73-393) Images Images CT scan of the abdomen pelvis showing thickened sigmoid colon consistent with colitis as well as thickened anterior gastric wall possibly gastritis Assessment/Plan Assessment/Plan Sigmoid colitis agree with medical treatment We will follow HERVE BRITO MD Jun 15, 2020 08:51
[2020-06-15 09:30] LABS: CALCIUM 8.3 mg/dL (8.5-10.1); CREATININE 0.8 mg/dL (0.6-1.0); GFR 69.2; MAGNESIUM 1.7 mg/dL (1.8-2.4); POTASSIUM 3.2 mmol/L (3.5-5.1)
[2020-06-15] MEDS: HYDROcodone/APAP 10/325 1 TAB TABLET PO PRN ×2 (09:38→18:26)
[2020-06-15] MEDS: MECLIZINE HCL 12.5 MG TABLET. PO PRN (09:38)
[2020-06-15 11:13] VITALS: BP 182/65
--- NOTE | 2020-06-15 12:52 | PDOC ---
G I PROGRESS NOTE Subjective Says better today. Eating w/o issue. Physical Exam Lungs clear. RRR Abdomen soft, minimally tender LLQ. Review of Relevant I have reviewed the following items sana (where applicable) has been applied. Labs Laboratory Tests Test 06/13/20 14:25 06/14/20 12:46 06/15/20 09:00 Lactic Acid Level 0.8 mmol/L (0.4-2.0) Clostridium difficile Toxin (PCR) Negative (NEGATIVE) Sodium Level 143 mmol/L (136-145) Potassium Level 3.2 mmol/L (3.5-5.1) Chloride Level 107 mmol/L (98-107) Carbon Dioxide Level 22 mmol/L (21-32) Anion Gap 14 (6-14) Blood Urea Nitrogen 10 mg/dL (7-20) Creatinine 0.8 mg/dL (0.6-1.0) Estimated GFR (Cockcroft-Gault) 69.2 Glucose Level 110 mg/dL (70-99) Calcium Level 8.3 mg/dL (8.5-10.1) Magnesium Level 1.7 mg/dL (1.8-2.4) Laboratory Tests Test 06/15/20 09:00 Sodium Level 143 mmol/L (136-145) Potassium Level 3.2 mmol/L (3.5-5.1) Chloride Level 107 mmol/L (98-107) Carbon Dioxide Level 22 mmol/L (21-32) Anion Gap 14 (6-14) Blood Urea Nitrogen 10 mg/dL (7-20) Creatinine 0.8 mg/dL (0.6-1.0) Estimated GFR (Cockcroft-Gault) 69.2 Glucose Level 110 mg/dL (70-99) Calcium Level 8.3 mg/dL (8.5-10.1) Magnesium Level 1.7 mg/dL (1.8-2.4) Microbiology 06/13/20 Urine Culture - Final, Complete Vitals/I & O Vital Sign - Last 24 Hours 06/14/20 06/14/20 06/14/20 06/14/20 15:00 19:00 20:00 23:00 Temp 98.9 98.9 98.6 98.9 98.9 98.6 Pulse 63 59 66 Resp 18 18 18 B/P (MAP) 148/68 (94) 139/47 (77) 134/42 (72) Pulse Ox 93 96 96 O2 Delivery Room Air Room Air Room Air Room Air 06/15/20 06/15/20 06/15/20 06/15/20 03:00 07:00 08:00 08:40 Temp 98.0 98.6 98.0 98.6 Pulse 68 63 63 Resp 18 17 B/P (MAP) 125/59 (81) 168/63 (98) 168/63 Pulse Ox 95 94 O2 Delivery Room Air Room Air Room Air 06/15/20 06/15/20 06/15/20 09:38 10:38 11:13 Temp 98.7 98.7 Pulse 67 Resp 16 B/P (MAP) 182/65 (104) Pulse Ox 92 O2 Delivery Room Air Room Air Room Air Intake and Output 06/14/20 06/14/20 06/15/20 15:00 23:00 07:00 Intake Total 100 ml 50 ml Balance 100 ml 50 ml Problem List Problems Medical Problems: (1) Acute colitis Status: Acute (2) Dehydration Status: Acute (3) Lactic acidosis Status: Acute Assessment Recurrent abdominal pain, long-standing. Cause unclear to me. Maybe the mesh. Plan of Care Note CPM Justicifation of Admission Dx: Justifications for Admission: Justification of Admission Dx: Yes DARIUS BRISENO MD Jun 15, 2020 12:52
[2020-06-15] MEDS ORDERED: MAGNESIUM SULFATE 2GM 50 ML IV PRN (14:30)
[2020-06-15] MEDS ORDERED: POTASSIUM CHLORIDE 20 MEQ TABLET.ER. PO PRN (14:30)
[2020-06-15] MEDS ORDERED: POTASSIUM CHLORIDE 10MEQ 100 ML IV PRN ×2 (14:30)
--- NOTE | 2020-06-15 14:45 | PDOC ---
[facility] PROGRESS NOTE Date of Service DOS: DATE: 06/15/20 TIME: 14:31 Chief Complaint Chief Complaint Acute abdominal pain due to sigmoid colitis Acute electrolyte derangementshypokalemia, hypomagnesemia Appreciate surgical recommendationsno interventions at this time Appreciate GI recommendationsadvance to clear liquid diet possible colonoscopy if symptoms worsen Pending H. pylori stool antigen Electrolyte replacement protocol with IV magnesium and IV potassium Continue IV Flagyl Lovenox for DVT prophylaxis Clear liquid diet Full code Discussed with RN and SW Disposition pending tolerance of regular diet Surrogate decision maker is the History of Present Illness History of Present Illness Patient states she has had a history of recurrent abdominal pain occurring roughly 2 times a year, secondary to abdominal adhesions. Her current pain feels similar to her history of chronic recurrent abdominal pain. She also reports a chronic history of diarrhea. She states her pain is improving. 06/15/2020 No acute events overnight. Patient seen and examined bedside. Patient is tolerating her diet. Patient's chart, labs, images were reviewed and discussed with RN Vitals/I&O Vitals/I&O: Vital Signs Date Time Temp Pulse Resp B/P (MAP) Pulse Ox O2 Delivery O2 Flow Rate FiO2 06/15/20 11:13 98.7 67 16 182/65 (104) 92 Room Air 98.7 06/14/20 08:05 2.0 I & O 06/14/20 06/14/20 06/15/20 15:00 23:00 07:00 Intake Total 100 ml 50 ml Balance 100 ml 50 ml Physical Exam Physical Exam: GEN: No apparent distress. Alert and oriented HEENT: Normal cephalic, atraumatic, external auditory canals are patent NECK: Supple, no JVD, no thyromegaly was noted LUNGS: Bilateral crackles HEART: RRR, S1, S2 present. Peripheral pulses intact, no obvious murmurs noted ABDOMEN: Soft, nontender. Positive bowel sounds, no organomegaly, normal bowel sounds EXTREMITIES: Without clubbing, cyanosis, or edema. Pedal pulses intact. Negative Homans sign General: Alert, Oriented X3, Cooperative, mild distress Heart: Regular rate, No murmurs Abdomen: Normal bowel sounds, Soft, Other (Tender to palpation along the right upper to right lower abdomen no peritoneal signs) Extremities: No edema Skin: No significant lesion Labs Labs: Laboratory Tests Test 06/15/20 09:00 Sodium Level 143 mmol/L (136-145) Potassium Level 3.2 mmol/L (3.5-5.1) Chloride Level 107 mmol/L (98-107) Carbon Dioxide Level 22 mmol/L (21-32) Anion Gap 14 (6-14) Blood Urea Nitrogen 10 mg/dL (7-20) Creatinine 0.8 mg/dL (0.6-1.0) Estimated GFR (Cockcroft-Gault) 69.2 Glucose Level 110 mg/dL (70-99) Calcium Level 8.3 mg/dL (8.5-10.1) Magnesium Level 1.7 mg/dL (1.8-2.4) Assessment and Plan Assessmemt and Plan Problems Medical Problems: (1) Acute colitis Status: Acute (2) Dehydration Status: Acute (3) Lactic acidosis Status: Acute Comment Review of Relevant I have reviewed the following items sana (where applicable) has been applied. Medications: Current Medications Medications (Trade) Dose Ordered Sig/Javi Route PRN Reason Start Time Stop Time Status Last Admin Dose Admin Lactobacillus Rhamnosus (Culturelle) 1 cap BID PO 06/14/20 21:00 06/15/20 08:40 Acetaminophen/ Hydrocodone Bitart (Lortab 10/325) 1 tab PRN Q4HRS PRN PO PAIN 06/15/20 09:30 06/15/20 09:38 Justifications for Admission Other Justification JUNIOR PASTOR MD Jun 15, 2020 14:45
[2020-06-15 15:20] VITALS: BP 170/74
[2020-06-15] MEDS ORDERED: MAGNESIUM OXIDE 400 MG TABLET PO PRN (16:00)
[2020-06-15 19:30] VITALS: BP 164/60
[2020-06-15] MEDS: ATORVASTATIN CALCIUM 10 MG TABLET. PO SCH (20:35)
[2020-06-15] MEDS: ENOXAPARIN 40 MG/0.4 ML SYRINGE. SQ SCH (20:35)
[2020-06-15 22:50] VITALS: BP 160/65
[2020-06-16] VITALS (8 sets, daily range): BP systolic 130–210; BP diastolic 55–87
[2020-06-16] MEDS: LISINOPRIL 20 MG TABLET PO SCH (08:12)
[2020-06-16] MEDS: LACTOBACILLUS RHAMNOSUS GG 1 CAPSULE. PO SCH ×2 (08:12→20:47)
[2020-06-16] MEDS ORDERED: amLODIPine BESYLATE 10 MG TABLET PO ONE (08:45)
--- NOTE | 2020-06-16 09:31 | PDOC ---
CARLIE LONDONO Bj TECHNICAL SERVICE REP 06/16/20 0931: SURGICAL PROGRESS NOTE DATE: 06/16/20 TIME: 09:29 Subjective still with loose stools LLQ pain does report problems with tingling to feet when lays since shelbie Vital Signs Vital Signs Date Time Temp Pulse Resp B/P (MAP) Pulse Ox O2 Delivery O2 Flow Rate FiO2 06/16/20 08:56 74 205/68 06/16/20 07:00 97.9 18 94 Room Air 97.9 I&O Intake and Output 06/16/20 06:59 Intake Total 300 ml Balance 300 ml Intake Oral 300 ml # Voids 4 # Bowel Movements 1 General: Alert, Oriented X3, Cooperative Abdomen: Soft, Other (LLQ TTP) Labs Laboratory Tests Test 06/14/20 12:46 06/15/20 09:00 Clostridium difficile Toxin (PCR) Negative (NEGATIVE) Sodium Level 143 mmol/L (136-145) Potassium Level 3.2 mmol/L (3.5-5.1) Chloride Level 107 mmol/L (98-107) Carbon Dioxide Level 22 mmol/L (21-32) Anion Gap 14 (6-14) Blood Urea Nitrogen 10 mg/dL (7-20) Creatinine 0.8 mg/dL (0.6-1.0) Estimated GFR (Cockcroft-Gault) 69.2 Glucose Level 110 mg/dL (70-99) Calcium Level 8.3 mg/dL (8.5-10.1) Magnesium Level 1.7 mg/dL (1.8-2.4) Problem List Problems Medical Problems: (1) Acute colitis Status: Acute (2) Dehydration Status: Acute (3) Lactic acidosis Status: Acute Assessment/Plan continue abx no obvious sores on feet--defer any workup to [facility] Justicifation of Admission Dx: Justifications for Admission: Justification of Admission Dx: Yes HERVE BRITO MD 06/16/20 1156: SURGICAL PROGRESS NOTE Assessment/Plan Overall feeling better abdomen is soft nondistended mildly tender to palpation left lower quadrant continue medical therapy agree with Art assessment plan CARLIE LONDONO APRN Jun 16, 2020 09:31 HERVE BRITO MD Jun 16, 2020 11:56
--- NOTE | 2020-06-16 10:06 | NUR ---
SW following. Discussed with RN, pt from home alone, gets around ad naa, clear liquid diet. Blood pressure high today. RN advised no SW needs at this time. SW will continue to follow.
[2020-06-16 10:26] LABS: CALCIUM 8.6 mg/dL (8.5-10.1); CREATININE 0.8 mg/dL (0.6-1.0); GFR 69.2; MAGNESIUM 1.8 mg/dL (1.8-2.4); POTASSIUM 3.8 mmol/L (3.5-5.1)
--- NOTE | 2020-06-16 10:43 | PDOC ---
Date of Service: DATE: 06/16/20 TIME: 10:35 Subjective: Subjective: Feels the same. Estimates about 5 watery stools daily - none during the night. Taking clears. Objective: Objective: C Diff negative. 1 stool charted on 06/16. On IV Flagyl. D/w Dr. Morales. Vital Signs: Vital Signs Date Time Temp Pulse Resp B/P (MAP) Pulse Ox O2 Delivery O2 Flow Rate FiO2 06/16/20 09:44 190/66 (107) 06/16/20 08:56 74 06/16/20 07:00 97.9 18 94 Room Air 97.9 Labs: Laboratory Tests Test 06/16/20 09:54 Sodium Level 144 mmol/L Potassium Level 3.8 mmol/L Chloride Level 108 mmol/L Carbon Dioxide Level 26 mmol/L Anion Gap 10 Blood Urea Nitrogen 6 mg/dL Creatinine 0.8 mg/dL Estimated GFR (Cockcroft-Gault) 69.2 Glucose Level 104 mg/dL Calcium Level 8.6 mg/dL Magnesium Level 1.8 mg/dL URINE CULTURE Final Final LESS THAN 10,000 CFU/ML Normal genitourinary christine, not indicative of infection on 06/15/20 at 0711 Imaging: CT A/P 06/13 MPRESSION: 1. Findings most suggestive of colitis of infectious/inflammatory etiology involving entire sigmoid colon the level of the left ventral abdominal hernia mesh distally toward the rectosigmoid junction. No free intraperitoneal air or pericolonic abscess. 2. Focal wall thickening and adjacent inflammation involving the gastric antrum just above nonspecific gastritis. There is subtle inflammation within the mesenteric root and adjacent to the left adrenal gland. Adrenal glands are otherwise normal in appearance. 3. Appearance of the sacrum and left iliac bone appears stable dating back to 03/12/2016. Benign etiology. PE: GEN: NAD LUNGS: CTAB HEART: RRR ABD: quiet BS, soft, doesn't seem too tender NEURO/PSYCH: A & O 3 A/P: LLQ pain, diarrhea Abnormal CT - suggestive of colitis involving entire sigmoid colon the level of the left ventral abdominal hernia mesh distally toward the rectosigmoid junction, nonspecific gastritis H/o colon cancer s/p resection HTN -- ?change to PO atbx ADAT, add PPI. Check stool culture. Would probably benefit from colonoscopy - can pursue as outpt. Will review any additional inpt GI recs w/ Dr. Casper. Justicifation of Admission Dx: Justifications for Admission: Justification of Admission Dx: Yes EVANS NARAYAN Jun 16, 2020 10:43
[2020-06-16] MEDS: PANTOPRAZOLE 40 MG TABLET.DR. PO SCH (12:26)
--- NOTE | 2020-06-16 13:54 | PDOC ---
[facility] [facility] PROGRESS NOTE Date of Service DOS: DATE: 06/16/20 TIME: 13:50 Chief Complaint Chief Complaint A/P Labile hypertension uncontrolled Acute abdominal pain due to sigmoid colitis Acute electrolyte derangementshypokalemia, hypomagnesemia Start labetalol 10 mg every 2 as needed Start amlodipine 10 mg p.o. Appreciate surgical recommendationsno interventions at this time Appreciate GI recommendationsadvance to clear liquid diet possible colonoscopy if symptoms worsen Pending H. pylori stool antigen Pending stool culture Electrolyte replacement protocol with IV magnesium and IV potassium Continue IV Flagyl Lovenox for DVT prophylaxis Clear liquid diet Full code Discussed with RN and SW Disposition pending tolerance of regular diet Surrogate decision maker is the History of Present Illness History of Present Illness Patient states she has had a history of recurrent abdominal pain occurring roughly 2 times a year, secondary to abdominal adhesions. Her current pain feels similar to her history of chronic recurrent abdominal pain. She also reports a chronic history of diarrhea. She states her pain is improving. 06/15/2020 No acute events overnight. Patient seen and examined bedside. Patient is tolerating her diet. Patient's chart, labs, images were reviewed and discussed with RN 06/16/2020 No acute events overnight. Patient is tolerating clears. Patient seen and examined bedside. Patient's chart, labs, images were reviewed and discussed with RN Vitals/I&O Vitals/I&O: Vital Signs Date Time Temp Pulse Resp B/P (MAP) Pulse Ox O2 Delivery O2 Flow Rate FiO2 06/16/20 11:00 98.2 71 18 182/74 (110) 95 Room Air 98.2 I & O 06/15/20 06/15/20 06/16/20 15:00 23:00 07:00 Intake Total 300 ml Balance 300 ml Physical Exam Physical Exam: GEN: No apparent distress. Alert and oriented HEENT: Normal cephalic, atraumatic, external auditory canals are patent NECK: Supple, no JVD, no thyromegaly was noted LUNGS: Bilateral crackles HEART: RRR, S1, S2 present. Peripheral pulses intact, no obvious murmurs noted ABDOMEN: Soft, nontender. Positive bowel sounds, no organomegaly, normal bowel sounds EXTREMITIES: Without clubbing, cyanosis, or edema. Pedal pulses intact. Negative Homans sign General: Alert, Oriented X3, Cooperative Heart: Regular rate, No murmurs Abdomen: Soft, Other (LLQ TTP) Extremities: No edema Skin: No significant lesion Labs Labs: Laboratory Tests Test 06/16/20 09:54 Sodium Level 144 mmol/L (136-145) Potassium Level 3.8 mmol/L (3.5-5.1) Chloride Level 108 mmol/L (98-107) Carbon Dioxide Level 26 mmol/L (21-32) Anion Gap 10 (6-14) Blood Urea Nitrogen 6 mg/dL (7-20) Creatinine 0.8 mg/dL (0.6-1.0) Estimated GFR (Cockcroft-Gault) 69.2 Glucose Level 104 mg/dL (70-99) Calcium Level 8.6 mg/dL (8.5-10.1) Magnesium Level 1.8 mg/dL (1.8-2.4) Assessment and Plan Assessmemt and Plan Problems Medical Problems: (1) Acute colitis Status: Acute (2) Dehydration Status: Acute (3) Lactic acidosis Status: Acute Comment Review of Relevant I have reviewed the following items sana (where applicable) has been applied. Medications: Current Medications Medications (Trade) Dose Ordered Sig/Javi Route PRN Reason Start Time Stop Time Status Last Admin Dose Admin Potassium Chloride (Klor-Con) 40 meq 1X PRN PRN PO PER PROTOCOL 06/15/20 14:30 06/15/20 15:43 Magnesium Oxide (Magnesium Oxide) 400 mg PRN BID PRN PO SEE COMMENTS 06/15/20 16:00 06/15/20 15:43 Metronidazole 100 ml @ 100 mls/hr Q12HR IV 06/15/20 15:00 06/16/20 08:12 Enoxaparin Sodium (Lovenox 40mg Syringe) 40 mg Q24H SQ 06/15/20 21:00 06/15/20 20:35 Amlodipine Besylate (Norvasc) 10 mg 1X ONCE PO 06/16/20 08:45 06/16/20 08:46 DC 06/16/20 08:56 Pantoprazole Sodium (Protonix) 40 mg DAILYAC PO 06/16/20 11:00 06/16/20 12:26 Justifications for Admission Other Justification JUNIOR PASTOR MD Jun 16, 2020 13:54
[2020-06-16] MEDS: ATORVASTATIN CALCIUM 10 MG TABLET. PO SCH (20:47)
[2020-06-16] MEDS: HYDROcodone/APAP 10/325 1 TAB TABLET PO PRN (20:48)
[2020-06-16] MEDS: ENOXAPARIN 40 MG/0.4 ML SYRINGE. SQ SCH (20:49)
[2020-06-17 03:13] VITALS: BP 128/65
--- NOTE | 2020-06-17 04:29 | EKG ---
[facility] [address] [place] [address] Test Date: 2020-06-13 Test Time: 10:31:32 Pat Name: FRANSISCA BAUTISTA Department: Room: Gender: F Ship Keeper: : 1940 Requested By: DARIUS BERMEO Order Number: [id number] Reading MD: Measurements Intervals [place] Rate: 86 P: 26 MT: 146 QRS: -3 QRSD: 80 T: 26 QT: 360 QTc: 434 Interpretive Statements SINUS RHYTHM ATRIAL PREMATURE COMPLEX(ES) LEFTWARD AXIS NO SPECIFIC ECG ABNORMALITIES RI6.02 No previous ECG available for comparison
[2020-06-17] MEDS: PANTOPRAZOLE 40 MG TABLET.DR. PO SCH (05:58)
[2020-06-17 07:00] VITALS: BP 164/62
[2020-06-17] MEDS: LISINOPRIL 20 MG TABLET PO SCH (08:58)
[2020-06-17] MEDS: LACTOBACILLUS RHAMNOSUS GG 1 CAPSULE. PO SCH ×2 (08:58→21:05)
[2020-06-17] MEDS: HYDROcodone/APAP 10/325 1 TAB TABLET PO PRN ×2 (09:28→21:05)
--- NOTE | 2020-06-17 09:38 | PDOC ---
CARLIE LONDONO CYLINDER VALVE REPAIRER 06/17/20 0938: SURGICAL PROGRESS NOTE DATE: 06/17/20 TIME: 09:37 Subjective abdomen sore did eat some breakfast Vital Signs Vital Signs Date Time Temp Pulse Resp B/P (MAP) Pulse Ox O2 Delivery O2 Flow Rate FiO2 06/17/20 09:28 19 93 Room Air 06/17/20 08:58 49 164/62 06/17/20 07:00 98.4 98.4 I&O Intake and Output 06/17/20 07:00 Intake Total 240 ml Balance 240 ml Intake Oral 240 ml # Voids 3 General: Alert, Oriented X3, Cooperative Abdomen: Soft, No tenderness Labs Laboratory Tests Test 06/16/20 09:54 Sodium Level 144 mmol/L (136-145) Potassium Level 3.8 mmol/L (3.5-5.1) Chloride Level 108 mmol/L (98-107) Carbon Dioxide Level 26 mmol/L (21-32) Anion Gap 10 (6-14) Blood Urea Nitrogen 6 mg/dL (7-20) Creatinine 0.8 mg/dL (0.6-1.0) Estimated GFR (Cockcroft-Gault) 69.2 Glucose Level 104 mg/dL (70-99) Calcium Level 8.6 mg/dL (8.5-10.1) Magnesium Level 1.8 mg/dL (1.8-2.4) Laboratory Tests Test 06/16/20 09:54 Sodium Level 144 mmol/L (136-145) Potassium Level 3.8 mmol/L (3.5-5.1) Chloride Level 108 mmol/L (98-107) Carbon Dioxide Level 26 mmol/L (21-32) Anion Gap 10 (6-14) Blood Urea Nitrogen 6 mg/dL (7-20) Creatinine 0.8 mg/dL (0.6-1.0) Estimated GFR (Cockcroft-Gault) 69.2 Glucose Level 104 mg/dL (70-99) Calcium Level 8.6 mg/dL (8.5-10.1) Magnesium Level 1.8 mg/dL (1.8-2.4) Problem List Problems Medical Problems: (1) Acute colitis Status: Acute (2) Dehydration Status: Acute (3) Lactic acidosis Status: Acute Assessment/Plan stable supportive measures Justicifation of Admission Dx: Justifications for Admission: Justification of Admission Dx: Yes HERVE BRITO MD 06/17/20 1109: SURGICAL PROGRESS NOTE Assessment/Plan Agree with [place] assessment plan no surgery plans at this time CALRIE LONDONO APRN Jun 17, 2020 09:38 HERVE BRITO MD Jun 17, 2020 11:09
--- NOTE | 2020-06-17 09:40 | NUR ---
SW following. Discussed with RN, pt from home, room air, full liquid diet, ad naa. Recommendation of colonoscopy as outpatient. Pt currently on IV abx. SW will continue to follow.
--- NOTE | 2020-06-17 10:47 | PDOC ---
Date of Service: DATE: 06/17/20 TIME: 10:46 Subjective: Subjective: Pain is better, no stools today, taking some full liquids but not much appetite. Objective: Vital Signs: Vital Signs Date Time Temp Pulse Resp B/P (MAP) Pulse Ox O2 Delivery O2 Flow Rate FiO2 06/17/20 09:28 19 93 Room Air 06/17/20 08:58 49 164/62 06/17/20 07:00 98.4 98.4 PE: GEN: NAD LUNGS: CTAB HEART: RRR ABD: BS+, soft, doesn't seem tender today NEURO/PSYCH: A & O 3 A/P: LLQ pain, diarrhea - better Abnormal CT - suggestive of colitis involving entire sigmoid colon the level of the left ventral abdominal hernia mesh distally toward the rectosigmoid junction, nonspecific gastritis H/o colon cancer s/p resection -- ADAT, consider changing to PO atbx, plan for outpt colonoscopy. Justicifation of Admission Dx: Justifications for Admission: Justification of Admission Dx: Yes EVANS NARAYAN Jun 17, 2020 10:47
[2020-06-17 11:00] VITALS: BP 168/62
--- NOTE | 2020-06-17 13:44 | PDOC ---
[facility] PROGRESS NOTE Date of Service DOS: DATE: 06/17/20 TIME: 13:41 Chief Complaint Chief Complaint A/P Labile hypertension Acute abdominal pain due to sigmoid colitis Acute electrolyte derangementshypokalemia, hypomagnesemia Continue labetalol 10 mg every 2 as needed Continue amlodipine 10 mg p.o. Appreciate surgical recommendationsno interventions at this time Appreciate GI recommendationsadvance to regular diet possible colonoscopy if symptoms worsen Negative H. pylori stool antigen Negative stool culture Electrolyte replacement protocol with IV magnesium and IV potassium Continue IV Flagyl Lovenox for DVT prophylaxis Clear liquid diet Full code Discussed with RN and SW Disposition pending tolerance of regular diet Surrogate decision maker is the History of Present Illness History of Present Illness Patient states she has had a history of recurrent abdominal pain occurring roug hly 2 times a year, secondary to abdominal adhesions. Her current pain feels similar to her history of chronic recurrent abdominal pain. She also reports a chronic history of diarrhea. She states her pain is improving. 06/15/2020 No acute events overnight. Patient seen and examined bedside. Patient is tolerating her diet. Patient's chart, labs, images were reviewed and discussed with RN 06/16/2020 No acute events overnight. Patient is tolerating clears. Patient seen and examined bedside. Patient's chart, labs, images were reviewed and discussed with RN . 06/17/2020 No acute events overnight. Patient has improvement in her abdominal pain. She is tolerating her clear liquid diet. Patient's chart, labs, images were reviewed and discussed with RN Vitals/I&O Vitals/I&O: Vital Signs Date Time Temp Pulse Resp B/P (MAP) Pulse Ox O2 Delivery O2 Flow Rate FiO2 06/17/20 11:00 99.1 83 17 168/62 (97) 93 Room Air 99.1 I & O 06/16/20 06/16/20 06/17/20 15:00 23:00 07:00 Intake Total 240 ml Balance 240 ml Physical Exam Physical Exam: GEN: No apparent distress. Alert and oriented HEENT: Normal cephalic, atraumatic, external auditory canals are patent NECK: Supple, no JVD, no thyromegaly was noted LUNGS: Bilateral crackles HEART: RRR, S1, S2 present. Peripheral pulses intact, no obvious murmurs noted ABDOMEN: Soft, nontender. Positive bowel sounds, no organomegaly, normal bowel sounds EXTREMITIES: Without clubbing, cyanosis, or edema. Pedal pulses intact. Negative Homans sign General: Alert, Oriented X3, Cooperative Heart: Regular rate, No murmurs Abdomen: Soft, No tenderness Extremities: No edema Skin: No significant lesion Assessment and Plan Assessmemt and Plan Problems Medical Problems: (1) Acute colitis Status: Acute (2) Dehydration Status: Acute (3) Lactic acidosis Status: Acute Comment Review of Relevant I have reviewed the following items sana (where applicable) has been applied. Justifications for Admission Other Justification JUNIOR PASTOR MD Jun 17, 2020 13:44
[2020-06-17 15:03] VITALS: BP 145/60
[2020-06-17 19:00] VITALS: BP 165/63
[2020-06-17] MEDS: ENOXAPARIN 40 MG/0.4 ML SYRINGE. SQ SCH (21:04)
[2020-06-17] MEDS: metroNIDAZOLE 500 MG TABLET PO SCH (21:04)
[2020-06-17] MEDS: ATORVASTATIN CALCIUM 10 MG TABLET. PO SCH (21:05)
[2020-06-17 23:00] VITALS: BP 127/39
[2020-06-18 03:00] VITALS: BP 146/62
[2020-06-18] MEDS: PANTOPRAZOLE 40 MG TABLET.DR. PO SCH (05:32)
[2020-06-18] MEDS: HYDROcodone/APAP 10/325 1 TAB TABLET PO PRN ×2 (05:32→09:34)
[2020-06-18 07:05] VITALS: BP 173/63
[2020-06-18] MEDS: LACTOBACILLUS RHAMNOSUS GG 1 CAPSULE. PO SCH (09:33)
[2020-06-18] MEDS: LISINOPRIL 20 MG TABLET PO SCH (09:33)
[2020-06-18] MEDS: metroNIDAZOLE 500 MG TABLET PO SCH (09:33)
[2020-06-18] MEDS: MECLIZINE HCL 12.5 MG TABLET. PO PRN (09:34)
--- NOTE | 2020-06-18 10:00 | NUR ---
SW following. Discussed with RN, pt advanced to GI soft diet, ad naa. RN anticipates possible discharge home today - pt wanting to discharge. SW will continue to follow.
--- NOTE | 2020-06-18 10:06 | PDOC ---
Date of Service: DATE: 06/18/20 TIME: 10:04 Subjective: Subjective: Doing better - tolerating diet, appetite better, pain less, diarrhea resolving. Objective: Objective: D/w Dr. Morales - AMA today? Vital Signs: Vital Signs Date Time Temp Pulse Resp B/P (MAP) Pulse Ox O2 Delivery O2 Flow Rate FiO2 06/18/20 09:34 93 Room Air 2.0 06/18/20 09:33 77 173/63 06/18/20 07:05 98.1 21 98.1 PE: GEN: NAD LUNGS: CTAB HEART: RRR ABD: NABS, S/ND/NT NEURO/PSYCH: A & O 3 A/P: LLQ pain, diarrhea - improved Abnormal CT - sigmoid colitis to level of left ventral abdominal hernia mesh distally toward the rectosigmoid junction, nonspecific gastritis H/o colon cancer s/p resection -- DC per primary - our office will contact to set up outpt colonoscopy - she also requests EGD. Justicifation of Admission Dx: Justifications for Admission: Justification of Admission Dx: Yes EVANS NARAYAN Jun 18, 2020 10:06
[2020-06-18 11:05] VITALS: BP 136/63
[2020-06-18] MEDS ORDERED: METR500T PO (11:59)
--- NOTE | 2020-06-18 12:00 | DISCH ---
DISCHARGE INSTRUCTIONS Condition on Discharge Condition on Discharge: Stable Activity After Discharge Activity Instructions for Disc: Activity as tolerated, Avoid exertion Exercise Instruction after Dis: Progress as tolerated Driving Instructions after Dis: Do not drive Diet after Discharge Diet after Discharge: GI Soft, Regular Diet Texture: Regular Liquid Texture: Thin Liquid Swallowing Supervision: None needed Wound Incision Care Wound/Incision Care: Ice to area for comfort Checks after Discharge Checks after discharge: Check blood press - daily Follow-Up Follow up with: Gastroenterology for outpatient colonoscopy Follow Up With: PCP within 1 week of discharge Treatment/Equipment after DC Adaptive Equipment Issued: None JUNIOR PASTOR MD Jun 18, 2020 12:00
--- NOTE | 2020-06-18 14:38 | NUR ---
Discharge Note: FRANSISCA BAUTISTA [address] Discharge instructions and discharge home medications reviewed with Patient and a copy given. All questions have been answered and understanding verbalized. The following instructions and handouts were given: Diet, activity, medication list and follow up instructions provided to patient. Discontinued lines and drains: Peripheral IV discontinued and catheter intact. Patient discharged to Home or Self Care withSpousevia Wheelchair
--- NOTE | 2020-06-18 21:37 | PDOC3 ---
[facility]-Discharge Summary Date of Admission: Date of Admission: Jun 13, 2020 Date of Discharge: Date of Discharge: Jun 18, 2020 Admission Diagnosis: Admitting Diagnosis: Colitis. Discharge Diagnosis: Discharge Diagnosis: Labile hypertension Acute abdominal pain due to sigmoid colitis Acute electrolyte derangementshypokalemia, hypomagnesemia COLTON due to vasomotor nephropathy Consults: Consults: Gastroenterology Hospital Course: Hospital Course: The patient is a pleasant middle-aged female who presents with abdominal pain, rates it 04/17, has been occurring for about a week, but it got worse in the past 24 hours. She increased her home meds, but that did not work, described as agonizing, worse with food, better with no food. We did some imaging in the ER. She does have colitis on the CAT scan of the abdomen. I discussed the case with ER physician. We are going to admit the patient, give her IV antibiotics and consult GI. Patient was admitted for further management and evaluation by GI. She was slowly advanced in her diet and she was eventually tolerating soft GI. Her ABD pain improved and her diarrhea had decreased. She will need to f/u with GI for a colonocopy and complete her course of flagyl. The rest of her hospital course was uneventful Disposition: Disposition/Orders: D/C to Home Activity: Activity: Resume previous activity Diet: Diet: Regular Medications: Home Meds Active Scripts Metronidazole (FLAGYL) 500 Mg Tablet, 500 MG PO Q12HR for colitis for 5 Days, #10 TAB Prov:JUNIOR PASTOR MD 06/18/20 Reported Medications Meclizine Hcl (MECLIZINE HCL) 25 Mg Tablet, 25 MG PO PRN PRN for DIZZINESS, TAB 05/15/19 Lisinopril (LISINOPRIL) 20 Mg Tablet, 1 TAB PO DAILY, #30 TAB 5 Refills 03/20/16 Lovastatin (LOVASTATIN) 20 Mg Tablet, 20 MG PO HS 09/11/13 Discontinued Reported Medications Hydrocodone/Apap 5-325 (NORCO 5-325 TABLET) 1 Each Tablet, 1 TAB PO PRN Q4HRS PRN for PAIN, TAB 0 Refills 05/15/19 Scheduled Lisinopril (Lisinopril), 1 TAB PO DAILY, (Reported) Lovastatin (Lovastatin), 20 MG PO HS, (Reported) Metronidazole (Flagyl), 500 MG PO Q12HR Scheduled PRN Meclizine Hcl (Meclizine Hcl), 25 MG PO PRN PRN for DIZZINESS, (Reported) Discontinued Medications Hydrocodone/Apap 5-325 ([place] 5-325 Tablet), 1 TAB PO PRN Q4HRS PRN for PAIN, (Reported) Total Time: Total Time: Total time spent was 25 minutes in preparing scripts, discharge planning with SW and RN, and preparing this discharge summary. Justicifation of Admission Dx: Justifications for Admission: Justification of Admission Dx: Yes JUNIOR PASTOR MD Jun 18, 2020 21:37
== END 2020-06-18 14:40 | disposition home or self-care (01) | DRG 371 ==
LOC: ER 10:12 → 4 NORTH 13:00
PROVIDERS: ADMIT Internal Medicine; ATTEND Internal Medicine
DX: A04.9 Bacterial intestinal infection, unspecified (principal); N17.0 Acute kidney failure with tubular necrosis; E87.2 Acidosis; E87.6 Hypokalemia; E78.00 Pure hypercholesterolemia, unspecified; E78.5 Hyperlipidemia, unspecified; E83.42 Hypomagnesemia; E86.0 Dehydration; I10 Essential (primary) hypertension; G89.29 Other chronic pain; M19.90 Unspecified osteoarthritis, unspecified site; K29.70 Gastritis, unspecified, without bleeding; K43.9 Ventral hernia without obstruction or gangrene; Z80.0 Family history of malignant neoplasm of digestive organs; Z85.038 Personal history of other malignant neoplasm of large intestine; Z90.49 Acquired absence of other specified parts of digestive tract; Z90.710 Acquired absence of both cervix and uterus
CPT/HCPCS: 36415; 74176; 80048; 80053; 81001; 82553; 83605; 83690; 83735; 84484; 85025; 85610; 85730; 87086; 87338; 87493; 87505; 93005; 96361; 96365; 96375; 99285; J0696; J1650; J2405; J3010; J3490; J7030; G0378; J8597